=== PATIENT | male | born 1960 | race Asian ===

== ENCOUNTER 2017-08-19 08:41 | Inpatient (IN) | payer OTHER ==
[2017-08-19] MEDS ORDERED: CLINDAMYCIN 900 MG/D5W (PMX) 50 ML IVPB (09:34)
[2017-08-19] MEDS: SODIUM CHLORIDE 0.9% 1L BAG IV* (09:34)
[2017-08-19 10:42] LABS: ADD MAN DIFF? NO
[2017-08-19 10:45] LABS: BASOPHIL # 0.1 10^3/ul (0.0-0.1); BASOPHILS % 0.4 % (0.0-2.0); EOSINOPHILS # 0.1 10^3/ul (0.0-0.5); EOSINOPHILS % 0.9 % (0.0-7.0); HEMATOCRIT 35.6 % (42.0-52.0); HEMOGLOBIN 12.2 g/dl (14.0-18.0); LYMPHOCYTES # 0.7 10^3/ul (0.8-2.9); MEAN CORPUSCULAR HEMOGLOBIN 28.6 pg (29.0-33.0); MEAN CORPUSCULAR HGB CONC 34.3 g/dl (32.0-37.0); MEAN CORPUSCULAR VOLUME 83.4 fl (82.0-101.0); MONOCYTE # 0.9 10^3/ul (0.3-0.9); MONOCYTES % 6.2 % (0.0-11.0); NEUTROPHIL # 12.2 10^3/ul (1.6-7.5); NEUTROPHILS % 86.7 % (39.0-77.0); PLATELET COUNT 275 10^3/UL (140-415); RED BLOOD COUNT 4.27 10^6/ul (4.70-6.10); RED CELL DISTRIBUTION WIDTH 13.6 % (11.5-14.5)
[2017-08-19] MEDS: ACETAMINOPHEN 500 MG TAB PO (11:00)
[2017-08-19] MEDS: CEFEPIME 2GM/50 ML (PMX) 50 ML IVPB (11:02)
[2017-08-19] MEDS: VANCOMYCIN 1 GM (PMX) 250 ML IVPB (11:02)
[2017-08-19 11:04] LABS: INR 1.08; PROTIME 14.1 Sec (11.9-14.9); PT RATIO 1.1
[2017-08-19 11:05] LABS: PARTIAL THROMBOPLASTIN TIME 32.7 Sec (25.0-35.0)
[2017-08-19 11:06] LABS: LACTIC ACID 1.2 mmol/L (0.5-2.0)
[2017-08-19 11:12] LABS: ALANINE AMINOTRANSFERASE 26 IU/L (13-69); ALBUMIN 2.9 g/dl (3.3-4.9); ALBUMIN/GLOBULIN RATIO 0.65; ALKALINE PHOSPHATASE 108 IU/L (42-121); ANION GAP 14 (8-16); ASPARTATE AMINO TRANSFERASE 35 IU/L (15-46); BILIRUBIN,INDIRECT 0.7 mg/dl (0-1.1); BILIRUBIN,TOTAL 0.7 mg/dl (0.2-1.3); BLOOD UREA NITROGEN 37 mg/dl (7-20); CALCIUM 8.6 mg/dl (8.4-10.2); CARBON DIOXIDE 28 mmol/L (21-31); CHLORIDE 96 mmol/L (97-110); CREATININE 1.92 mg/dl (0.61-1.24); GLUCOSE 151 mg/dl (70-220); POTASSIUM 5.8 mmol/L (3.5-5.1); SODIUM 132 mmol/L (135-144); TOTAL PROTEIN 7.3 g/dl (6.1-8.1)
[2017-08-19 11:22] LABS: TROPONIN-I < 0.012 ng/ml (0.00-0.12)
[2017-08-19] MEDS ORDERED: ACETAMINOPHEN 325 MG TAB PO (12:00)
[2017-08-19] MEDS ORDERED: ONDANSETRON 4 MG INJ IV ×2 (12:00→12:30)
[2017-08-19 12:01] LABS: ERYTHROCYTE SEDIMENTATION RATE 93 mm/Hr (0-20)
[2017-08-19] MEDS ORDERED: NACL 0.9% 3 ML SYG IV (12:30)
[2017-08-19] MEDS ORDERED: VANCOMYCIN IV PER PHARMACY XX (12:30)
[2017-08-19] MEDS ORDERED: ACETAMINOPHEN 650 MG SUPP PR (12:30)
[2017-08-19 12:39] LABS: LACTIC ACID 0.8 mmol/L (0.5-2.0)
[2017-08-19 13:20] LABS: HEMOGLOBIN A1C 7.1 % (0-5.9)
[2017-08-19] MEDS ORDERED: GLUCOSE GEL 15 GRAM TUBE BUCCAL (13:30)
[2017-08-19] MEDS ORDERED: GLUCAGON 1 MG INJ IM (13:30)
[2017-08-19] MEDS ORDERED: GLUCOSE GEL 15 GRAM TUBE PO ×2 (13:30)
[2017-08-19] MEDS ORDERED: DEXTROSE 50% 50 ML SYRINGE IV ×2 (13:30)
[2017-08-19 13:32] LABS: CHOLESTEROL 81 mg/dl (100-200)
[2017-08-19 13:32] LABS: CHOL/HDL RATIO 4.7 RATIO; HDL CHOLESTEROL 17 mg/dl (30-78); LDL CHOLESTEROL,CALCULATED 40 mg/dl; TRIGLYCERIDES 121 mg/dl (0-149)
[2017-08-19 14:08] LABS: IRON 33 ug/dl (35-150)
[2017-08-19 14:17] LABS: % IRON SATURATION 16 % SAT (22-52); TOTAL IRON BINDING CAPACITY 211 ug/dl (241-421)
[2017-08-19] MEDS: PIPER-TAZO 3.375 GM IV (PMX) 50 ML IVPB ×2 (17:10→23:45)
[2017-08-19] MEDS: SOD CHLORIDE 0.9% 1,000 ML IV (17:11)
[2017-08-19] MEDS: VANCOMYCIN 1 GM in NS 250 ML IVPB (17:55)
[2017-08-19] MEDS: INSULIN ASPART [NOVOLOG] 3 ML PEN SC ×2 (17:58→21:00)
[2017-08-19] MEDS: ACETAMINOPHEN 325 MG TAB PO (19:36)
[2017-08-19] MEDS: FAMOTIDINE 20 MG TAB PO (21:20)
[2017-08-19] MEDS: HEPARIN 5,000 UNIT/0.5 ML VIAL SC (21:22)
[2017-08-19 23:00] LABS: ADD UMIC YES; UR ASCORBIC ACID NEGATIVE (NEGATIVE); UR BACTERIA FEW /HPF (NONE SEEN); UR BILIRUBIN (Dip) NEGATIVE (NEGATIVE); UR BLOOD (Dip) 3+ mg/dL (NEGATIVE); UR CLARITY CLOUDY (CLEAR); UR COLOR AMBER (YELLOW); UR GLUCOSE (Dip) NEGATIVE (NEGATIVE); UR KETONES (Dip) NEGATIVE (NEGATIVE); UR LEUKOCYTE ESTERASE (Dip) TRACE Leu/ul (NEGATIVE); UR NITRITE (Dip) NEGATIVE (NEGATIVE); UR RBC > 182 /HPF (0-5); UR SPECIFIC GRAVITY (Dip) 1.016 (1.003-1.030); UR TOTAL PROTEIN (Dip) 3+ mg/dl (NEGATIVE); UR UROBILINOGEN (Dip) NEGATIVE (NEGATIVE); UR WBC 56 /HPF (0-5)
[2017-08-19] MEDS: INSULIN GLARGINE [LANtus] 3 ML PEN SC (23:37)
[2017-08-20] MEDS: ACCU-CHEK XX (02:18)
[2017-08-20] MEDS: SOD CHLORIDE 0.9% 1,000 ML IV ×2 (03:20→17:17)
[2017-08-20] MEDS: PIPER-TAZO 3.375 GM IV (PMX) 50 ML IVPB ×3 (06:05→17:13)
[2017-08-20 06:20] LABS: ADD MAN DIFF? NO
[2017-08-20 06:29] LABS: WHITE BLOOD COUNT 12.4 10^3/ul (4.8-10.8)
[2017-08-20 06:29] LABS: BASOPHILS % 0.3 % (0.0-2.0); EOSINOPHILS # 0.3 10^3/ul (0.0-0.5); EOSINOPHILS % 2.5 % (0.0-7.0); HEMATOCRIT 28.6 % (42.0-52.0); HEMOGLOBIN 9.8 g/dl (14.0-18.0); LYMPHOCYTES # 0.7 10^3/ul (0.8-2.9); LYMPHOCYTES % 5.4 % (15.0-51.0); MEAN CORPUSCULAR HEMOGLOBIN 28.5 pg (29.0-33.0); MEAN CORPUSCULAR HGB CONC 34.3 g/dl (32.0-37.0); MEAN CORPUSCULAR VOLUME 83.1 fl (82.0-101.0); MONOCYTE # 0.7 10^3/ul (0.3-0.9); MONOCYTES % 5.5 % (0.0-11.0); NEUTROPHIL # 10.7 10^3/ul (1.6-7.5); NEUTROPHILS % 85.7 % (39.0-77.0); PLATELET COUNT 214 10^3/UL (140-415); RED BLOOD COUNT 3.44 10^6/ul (4.70-6.10); RED CELL DISTRIBUTION WIDTH 13.7 % (11.5-14.5)
[2017-08-20] MEDS: HYPOGLYCEMIA PROTOCOL when Glucose is <70 mg/dL or symptomatic <90 mg/dL. XX (07:00)
[2017-08-20] MEDS: Discontinue current oral sulfonylureas (glyburide, glipizide, and/or glimepiride) prior to XX (07:00)
[2017-08-20 07:01] LABS: ALANINE AMINOTRANSFERASE 27 IU/L (13-69); ALBUMIN/GLOBULIN RATIO 0.57; ALKALINE PHOSPHATASE 81 IU/L (42-121); ANION GAP 10 (8-16); ASPARTATE AMINO TRANSFERASE 29 IU/L (15-46); BILIRUBIN,INDIRECT 0.5 mg/dl (0-1.1); BILIRUBIN,TOTAL 0.5 mg/dl (0.2-1.3); BLOOD UREA NITROGEN 42 mg/dl (7-20); CALCIUM 7.4 mg/dl (8.4-10.2); CARBON DIOXIDE 25 mmol/L (21-31); CHLORIDE 102 mmol/L (97-110); CREATININE 2.16 mg/dl (0.61-1.24); GLUCOSE 85 mg/dl (70-220); MAGNESIUM 2.1 mg/dl (1.7-2.5); PHOSPHORUS 5.4 mg/dl (2.5-4.9); POTASSIUM 5.1 mmol/L (3.5-5.1); SODIUM 132 mmol/L (135-144); TOTAL PROTEIN 5.5 g/dl (6.1-8.1)
[2017-08-20] MEDS: INSULIN ASPART [NOVOLOG] 3 ML PEN SC ×4 (08:00→20:48)
[2017-08-20] MEDS: LINAGLIPTIN 5 MG TABLET PO (08:45)
[2017-08-20] MEDS: HEPARIN 5,000 UNIT/0.5 ML VIAL SC (09:00)
[2017-08-20] MEDS ORDERED: VANCOMYCIN 1.25 GM in SOD CHLORIDE 0.9% 250 ML IVPB (13:00)
[2017-08-20] MEDS: VANCOMYCIN 750 MG in DEXTROSE 5% 150 ML IVPB (14:47)
[2017-08-20] MEDS ORDERED: INSULIN GLARGINE [LANtus] 3 ML PEN SC (20:00)
[2017-08-20] MEDS: FAMOTIDINE 20 MG TAB PO (20:49)
[2017-08-21] MEDS: PIPER-TAZO 3.375 GM IV (PMX) 50 ML IVPB ×2 (00:07→05:54)
[2017-08-21] MEDS: ACCU-CHEK XX (00:10)
[2017-08-21 05:50] LABS: ADD MAN DIFF? NO
[2017-08-21 05:56] LABS: WHITE BLOOD COUNT 10.4 10^3/ul (4.8-10.8)
[2017-08-21 05:56] LABS: BASOPHIL # 0.1 10^3/ul (0.0-0.1); BASOPHILS % 0.6 % (0.0-2.0); EOSINOPHILS # 0.5 10^3/ul (0.0-0.5); EOSINOPHILS % 5.1 % (0.0-7.0); HEMATOCRIT 27.5 % (42.0-52.0); HEMOGLOBIN 9.2 g/dl (14.0-18.0); LYMPHOCYTES # 1.1 10^3/ul (0.8-2.9); LYMPHOCYTES % 10.2 % (15.0-51.0); MEAN CORPUSCULAR HEMOGLOBIN 28.1 pg (29.0-33.0); MEAN CORPUSCULAR HGB CONC 33.5 g/dl (32.0-37.0); MEAN CORPUSCULAR VOLUME 84.1 fl (82.0-101.0); MEAN PLATELET VOLUME 9.9 fl (7.4-10.4); MONOCYTE # 0.8 10^3/ul (0.3-0.9); MONOCYTES % 7.5 % (0.0-11.0); NEUTROPHIL # 7.9 10^3/ul (1.6-7.5); NEUTROPHILS % 75.9 % (39.0-77.0); PLATELET COUNT 221 10^3/UL (140-415); RED BLOOD COUNT 3.27 10^6/ul (4.70-6.10); RED CELL DISTRIBUTION WIDTH 13.7 % (11.5-14.5)
[2017-08-21] MEDS: SOD CHLORIDE 0.9% 1,000 ML IV ×2 (05:57→12:30)
[2017-08-21 06:29] LABS: ANION GAP 10 (8-16); BLOOD UREA NITROGEN 45 mg/dl (7-20); CALCIUM 7.2 mg/dl (8.4-10.2); CARBON DIOXIDE 25 mmol/L (21-31); CHLORIDE 102 mmol/L (97-110); CREATININE 2.72 mg/dl (0.61-1.24); GLUCOSE 99 mg/dl (70-220); POTASSIUM 5.2 mmol/L (3.5-5.1); SODIUM 132 mmol/L (135-144)
[2017-08-21] MEDS: INSULIN ASPART [NOVOLOG] 3 ML PEN SC ×4 (07:40→20:32)
[2017-08-21] MEDS ORDERED: INSULIN GLARGINE [LANtus] 3 ML PEN SC (09:00)
[2017-08-21] MEDS: LINAGLIPTIN 5 MG TABLET PO (09:59)
[2017-08-21] MEDS: PIPER-TAZO 2.25 GM (PMX) 50 ML IVPB ×3 (12:26→23:44)
[2017-08-21 13:58] LABS: VANCOMYCIN,TROUGH 9.4 ug/ml (10.0-20.0)
[2017-08-21] MEDS: VANCOMYCIN 750 MG in DEXTROSE 5% 150 ML IVPB (14:27)
[2017-08-21] MEDS: SOD FERRIC GLUC COMPLX 125 MG in SOD CHLORIDE 0.9% 100 ML IVPB (15:22)
[2017-08-21] MEDS: FAMOTIDINE 20 MG TAB PO (20:31)
[2017-08-22] MEDS: ACCU-CHEK XX (02:00)
[2017-08-22 05:09] LABS: ADD MAN DIFF? NO
[2017-08-22 05:20] LABS: BASOPHIL # 0.1 10^3/ul (0.0-0.1); BASOPHILS % 0.5 % (0.0-2.0); EOSINOPHILS # 0.5 10^3/ul (0.0-0.5); EOSINOPHILS % 5.5 % (0.0-7.0); HEMATOCRIT 27.8 % (42.0-52.0); HEMOGLOBIN 9.3 g/dl (14.0-18.0); LYMPHOCYTES # 0.9 10^3/ul (0.8-2.9); LYMPHOCYTES % 9.7 % (15.0-51.0); MEAN CORPUSCULAR HEMOGLOBIN 28.2 pg (29.0-33.0); MEAN CORPUSCULAR HGB CONC 33.5 g/dl (32.0-37.0); MEAN CORPUSCULAR VOLUME 84.2 fl (82.0-101.0); MEAN PLATELET VOLUME 9.7 fl (7.4-10.4); MONOCYTE # 0.7 10^3/ul (0.3-0.9); NEUTROPHIL # 7.2 10^3/ul (1.6-7.5); NEUTROPHILS % 76.7 % (39.0-77.0); PLATELET COUNT 223 10^3/UL (140-415); RED CELL DISTRIBUTION WIDTH 14.4 % (11.5-14.5)
[2017-08-22 05:20] LABS: WHITE BLOOD COUNT 9.4 10^3/ul (4.8-10.8)
[2017-08-22] MEDS: PIPER-TAZO 2.25 GM (PMX) 50 ML IVPB ×2 (05:33→11:47)
[2017-08-22 05:50] LABS: ANION GAP 9 (8-16); BLOOD UREA NITROGEN 45 mg/dl (7-20); CARBON DIOXIDE 23 mmol/L (21-31); CHLORIDE 106 mmol/L (97-110); CREATININE 2.95 mg/dl (0.61-1.24); GLUCOSE 120 mg/dl (70-220); POTASSIUM 5.4 mmol/L (3.5-5.1); SODIUM 133 mmol/L (135-144)
[2017-08-22] MEDS: SOD CHLORIDE 0.9% 1,000 ML IV (07:00)
[2017-08-22] MEDS: INSULIN ASPART [NOVOLOG] 3 ML PEN SC ×4 (08:00→21:00)
[2017-08-22] MEDS: LINAGLIPTIN 5 MG TABLET PO (09:17)
[2017-08-22] MEDS: SOD FERRIC GLUC COMPLX 125 MG in SOD CHLORIDE 0.9% 100 ML IVPB (10:23)
[2017-08-22] MEDS: NA POLYST SULFON 15 GM/60 ML BTL PO (14:14)
[2017-08-22] MEDS: VANCOMYCIN 750 MG in DEXTROSE 5% 150 ML IVPB (14:14)
[2017-08-22] MEDS: DAPTOMYCIN 350 MG in SOD CHLORIDE 0.9% 100 ML IVPB (15:00)
[2017-08-22] MEDS: LEVOFLOXACIN 500 MG TAB PO (16:54)
[2017-08-22] MEDS: LORATADINE 10 MG TAB NGT (16:55)
[2017-08-22] MEDS: ACETAMINOPHEN 325 MG TAB PO (16:58)
[2017-08-22] MEDS: FAMOTIDINE 20 MG TAB PO (21:32)
[2017-08-22] MEDS: DAPTOMYCIN 500 MG in SOD CHLORIDE 0.9% 100 ML IVPB (21:32)
[2017-08-23] MEDS: SOD CHLORIDE 0.9% 1,000 ML IV ×2 (00:30→12:47)
[2017-08-23] MEDS: ACCU-CHEK XX (01:30)
[2017-08-23 05:10] LABS: ADD MAN DIFF? NO
[2017-08-23 05:16] LABS: WHITE BLOOD COUNT 9.9 10^3/ul (4.8-10.8)
[2017-08-23 05:16] LABS: BASOPHILS % 0.4 % (0.0-2.0); EOSINOPHILS # 0.4 10^3/ul (0.0-0.5); EOSINOPHILS % 3.6 % (0.0-7.0); HEMATOCRIT 27.2 % (42.0-52.0); HEMOGLOBIN 9.2 g/dl (14.0-18.0); LYMPHOCYTES # 0.7 10^3/ul (0.8-2.9); LYMPHOCYTES % 7.2 % (15.0-51.0); MEAN CORPUSCULAR HEMOGLOBIN 28.3 pg (29.0-33.0); MEAN CORPUSCULAR HGB CONC 33.8 g/dl (32.0-37.0); MEAN CORPUSCULAR VOLUME 83.7 fl (82.0-101.0); MEAN PLATELET VOLUME 9.7 fl (7.4-10.4); MONOCYTE # 0.7 10^3/ul (0.3-0.9); MONOCYTES % 7.5 % (0.0-11.0); NEUTROPHILS % 80.4 % (39.0-77.0); PLATELET COUNT 200 10^3/UL (140-415); RED BLOOD COUNT 3.25 10^6/ul (4.70-6.10); RED CELL DISTRIBUTION WIDTH 14.2 % (11.5-14.5)
[2017-08-23 06:24] LABS: ANION GAP 9 (8-16); BLOOD UREA NITROGEN 46 mg/dl (7-20); CALCIUM 6.9 mg/dl (8.4-10.2); CARBON DIOXIDE 21 mmol/L (21-31); CHLORIDE 108 mmol/L (97-110); CREATININE 2.96 mg/dl (0.61-1.24); GLUCOSE 162 mg/dl (70-220); POTASSIUM 5.2 mmol/L (3.5-5.1); SODIUM 133 mmol/L (135-144)
[2017-08-23 06:54] LABS: VANCOMYCIN,TROUGH 15.1 ug/ml (10.0-20.0)
[2017-08-23 07:27] LABS: ADD UMIC YES; UR AMORPHOUS CRYSTAL FEW /HPF (NONE SEEN); UR ASCORBIC ACID NEGATIVE (NEGATIVE); UR BACTERIA FEW /HPF (NONE SEEN); UR BILIRUBIN (Dip) NEGATIVE (NEGATIVE); UR BLOOD (Dip) 3+ mg/dL (NEGATIVE); UR CLARITY CLOUDY (CLEAR); UR COLOR AMBER (YELLOW); UR GLUCOSE (Dip) 1+ mg/dL (NEGATIVE); UR KETONES (Dip) NEGATIVE (NEGATIVE); UR LEUKOCYTE ESTERASE (Dip) NEGATIVE Leu/ul (NEGATIVE); UR NITRITE (Dip) NEGATIVE (NEGATIVE); UR RBC > 182 /HPF (0-5); UR SPECIFIC GRAVITY (Dip) 1.014 (1.003-1.030); UR TOTAL PROTEIN (Dip) 2+ mg/dl (NEGATIVE); UR UROBILINOGEN (Dip) NEGATIVE (NEGATIVE); UR WBC 36 /HPF (0-5)
[2017-08-23 07:39] LABS: SODIUM,URINE RANDOM 42 mmol/L (30-90)
[2017-08-23 07:39] LABS: CREATININE,URINE RANDOM 95.82 mg/dl (20-370)
[2017-08-23] MEDS: INSULIN ASPART [NOVOLOG] 3 ML PEN SC ×4 (08:00→21:00)
[2017-08-23 08:27] LABS: URINE EOSINOPHILS 0.4 % (0-1.9)
[2017-08-23] MEDS: LORATADINE 10 MG TAB NGT (08:28)
[2017-08-23] MEDS: LINAGLIPTIN 5 MG TABLET PO (08:28)
[2017-08-23] MEDS: FAMOTIDINE 20 MG TAB PO (21:44)
[2017-08-24] MEDS: ACCU-CHEK XX (02:00)
[2017-08-24] MEDS: SOD CHLORIDE 0.9% 1,000 ML IV (02:37)
[2017-08-24 05:48] LABS: ADD MAN DIFF? NO
[2017-08-24 05:57] LABS: WHITE BLOOD COUNT 10.3 10^3/ul (4.8-10.8)
[2017-08-24 05:57] LABS: BASOPHILS % 0.4 % (0.0-2.0); EOSINOPHILS # 0.4 10^3/ul (0.0-0.5); EOSINOPHILS % 4.3 % (0.0-7.0); HEMATOCRIT 27.7 % (42.0-52.0); HEMOGLOBIN 9.3 g/dl (14.0-18.0); LYMPHOCYTES # 0.7 10^3/ul (0.8-2.9); LYMPHOCYTES % 7.2 % (15.0-51.0); MEAN CORPUSCULAR HEMOGLOBIN 28.4 pg (29.0-33.0); MEAN CORPUSCULAR HGB CONC 33.6 g/dl (32.0-37.0); MEAN CORPUSCULAR VOLUME 84.7 fl (82.0-101.0); MEAN PLATELET VOLUME 10.1 fl (7.4-10.4); MONOCYTE # 0.7 10^3/ul (0.3-0.9); MONOCYTES % 7.1 % (0.0-11.0); NEUTROPHIL # 8.2 10^3/ul (1.6-7.5); NEUTROPHILS % 80.2 % (39.0-77.0); NUCLEATED RED BLOOD CELLS% 0.2 /100WBC (0.0-0.0); PLATELET COUNT 181 10^3/UL (140-415); RED BLOOD COUNT 3.27 10^6/ul (4.70-6.10); RED CELL DISTRIBUTION WIDTH 14.3 % (11.5-14.5)
[2017-08-24 06:34] LABS: ANION GAP 11 (8-16); BLOOD UREA NITROGEN 49 mg/dl (7-20); CALCIUM 6.7 mg/dl (8.4-10.2); CARBON DIOXIDE 19 mmol/L (21-31); CHLORIDE 109 mmol/L (97-110); CREATININE 3.42 mg/dl (0.61-1.24); GLUCOSE 127 mg/dl (70-220); POTASSIUM 5.1 mmol/L (3.5-5.1); SODIUM 134 mmol/L (135-144)
[2017-08-24 06:56] LABS: CREATINE KINASE < 20 IU/L (23-200)
[2017-08-24 06:57] LABS: COMPLEMENT C3 85 mg/dl (88-165); COMPLEMENT C4 20 mg/dl (14-44)
[2017-08-24] MEDS: INSULIN ASPART [NOVOLOG] 3 ML PEN SC ×4 (07:58→21:04)
[2017-08-24] MEDS: LORATADINE 10 MG TAB NGT ×2 (08:13→09:38)
[2017-08-24] MEDS: LINAGLIPTIN 5 MG TABLET PO ×2 (08:14→09:38)
[2017-08-24] MEDS: GUAIFENESIN/DM 5ML CUP PO ×2 (11:57→21:04)
[2017-08-24] MEDS: LEVOFLOXACIN 500 MG TAB PO (14:43)
[2017-08-24] MEDS ORDERED: DIPHENHYDRAMINE 50 MG INJ IV (17:00)
[2017-08-24] MEDS: FUROSEMIDE 20 MG INJ IV (17:41)
[2017-08-24] MEDS: DAPTOMYCIN 500 MG in SOD CHLORIDE 0.9% 100 ML IVPB (17:41)
[2017-08-24] MEDS: FAMOTIDINE 20 MG TAB PO (21:04)
[2017-08-25] MEDS: ACCU-CHEK XX (02:00)
[2017-08-25 05:16] LABS: ADD MAN DIFF? NO
[2017-08-25 05:18] LABS: BASOPHILS % 0.6 % (0.0-2.0); EOSINOPHILS # 0.3 10^3/ul (0.0-0.5); EOSINOPHILS % 3.9 % (0.0-7.0); HEMOGLOBIN 8.3 g/dl (14.0-18.0); LYMPHOCYTES # 0.6 10^3/ul (0.8-2.9); LYMPHOCYTES % 9.1 % (15.0-51.0); MEAN CORPUSCULAR HEMOGLOBIN 28.7 pg (29.0-33.0); MEAN CORPUSCULAR HGB CONC 34.6 g/dl (32.0-37.0); MEAN PLATELET VOLUME 10.4 fl (7.4-10.4); MONOCYTE # 0.6 10^3/ul (0.3-0.9); MONOCYTES % 8.8 % (0.0-11.0); NEUTROPHIL # 5.1 10^3/ul (1.6-7.5); NEUTROPHILS % 76.8 % (39.0-77.0); PLATELET COUNT 160 10^3/UL (140-415); RED BLOOD COUNT 2.89 10^6/ul (4.70-6.10)
[2017-08-25 05:18] LABS: WHITE BLOOD COUNT 6.6 10^3/ul (4.8-10.8)
[2017-08-25 05:47] LABS: ANION GAP 13 (8-16); BLOOD UREA NITROGEN 51 mg/dl (7-20); CALCIUM 6.9 mg/dl (8.4-10.2); CARBON DIOXIDE 19 mmol/L (21-31); CHLORIDE 109 mmol/L (97-110); CREATININE 3.98 mg/dl (0.61-1.24); GLUCOSE 131 mg/dl (70-220); POTASSIUM 5.3 mmol/L (3.5-5.1); SODIUM 136 mmol/L (135-144)
[2017-08-25] MEDS: INSULIN ASPART [NOVOLOG] 3 ML PEN SC ×4 (08:00→20:17)
[2017-08-25] MEDS: GUAIFENESIN/DM 5ML CUP PO ×2 (08:31→22:53)
[2017-08-25] MEDS: LORATADINE 10 MG TAB NGT (08:31)
[2017-08-25] MEDS: LINAGLIPTIN 5 MG TABLET PO (08:31)
[2017-08-25] MEDS: FUROSEMIDE 20 MG INJ IV (11:48)
[2017-08-25 13:11] LABS: MYELOPEROXIDASE ANTIBODY <1.0 AI; PROTEINASE-3 ANTIBODY <1.0 AI
[2017-08-25 13:58] LABS: ANA SCREEN NEGATIVE (NEGATIVE)
[2017-08-25 14:42] LABS: ANCA SCREEN NEGATIVE (NEGATIVE)
[2017-08-25] MEDS: FAMOTIDINE 20 MG TAB PO (20:18)
[2017-08-26] MEDS: ACCU-CHEK XX (01:20)
[2017-08-26 05:15] LABS: ADD MAN DIFF? NO
[2017-08-26 05:23] LABS: WHITE BLOOD COUNT 6.8 10^3/ul (4.8-10.8)
[2017-08-26 05:23] LABS: BASOPHILS % 0.3 % (0.0-2.0); EOSINOPHILS # 0.2 10^3/ul (0.0-0.5); EOSINOPHILS % 2.5 % (0.0-7.0); HEMATOCRIT 25.9 % (42.0-52.0); HEMOGLOBIN 8.9 g/dl (14.0-18.0); LYMPHOCYTES # 0.7 10^3/ul (0.8-2.9); LYMPHOCYTES % 10.3 % (15.0-51.0); MEAN CORPUSCULAR HEMOGLOBIN 28.3 pg (29.0-33.0); MEAN CORPUSCULAR HGB CONC 34.4 g/dl (32.0-37.0); MEAN CORPUSCULAR VOLUME 82.5 fl (82.0-101.0); MEAN PLATELET VOLUME 10.4 fl (7.4-10.4); MONOCYTE # 0.6 10^3/ul (0.3-0.9); MONOCYTES % 8.9 % (0.0-11.0); NEUTROPHIL # 5.2 10^3/ul (1.6-7.5); NEUTROPHILS % 77.1 % (39.0-77.0); PLATELET COUNT 187 10^3/UL (140-415); RED BLOOD COUNT 3.14 10^6/ul (4.70-6.10); RED CELL DISTRIBUTION WIDTH 14.4 % (11.5-14.5)
[2017-08-26 05:59] LABS: ANION GAP 14 (8-16); BLOOD UREA NITROGEN 58 mg/dl (7-20); CALCIUM 6.9 mg/dl (8.4-10.2); CARBON DIOXIDE 18 mmol/L (21-31); CHLORIDE 108 mmol/L (97-110); CREATININE 4.32 mg/dl (0.61-1.24); GLUCOSE 121 mg/dl (70-220); POTASSIUM 5.7 mmol/L (3.5-5.1); SODIUM 134 mmol/L (135-144)
[2017-08-26 06:14] LABS: MAGNESIUM 2.1 mg/dl (1.7-2.5)
[2017-08-26] MEDS: ACETAMINOPHEN 325 MG TAB PO (06:54)
[2017-08-26] MEDS: GUAIFENESIN/DM 5ML CUP PO ×2 (06:56→20:21)
[2017-08-26] MEDS: INSULIN ASPART [NOVOLOG] 3 ML PEN SC ×4 (08:00→21:00)
[2017-08-26] MEDS: LORATADINE 10 MG TAB NGT (09:25)
[2017-08-26] MEDS: LINAGLIPTIN 5 MG TABLET PO (09:25)
[2017-08-26] MEDS: NA POLYST SULFON 15 GM/60 ML BTL PO ×2 (10:20→20:21)
[2017-08-26] MEDS: LEVOFLOXACIN 500 MG TAB PO (14:52)
[2017-08-26] MEDS: DAPTOMYCIN 500 MG in SOD CHLORIDE 0.9% 100 ML IVPB (17:47)
[2017-08-26] MEDS: FAMOTIDINE 20 MG TAB PO (20:21)
[2017-08-26] MEDS: METOPROLOL 25 MG TAB PO (20:22)
[2017-08-26] MEDS: NA BICARBONATE 650 MG TAB PO (20:55)
[2017-08-27] MEDS: ACETAMINOPHEN 325 MG TAB PO ×3 (01:53→20:28)
[2017-08-27] MEDS: ACCU-CHEK XX (02:00)
[2017-08-27 02:27] LABS: CREATINE KINASE 69 IU/L (23-200)
[2017-08-27 02:41] LABS: CK INDEX 0.8; TROPONIN-I 0.019 ng/ml (0.00-0.12)
[2017-08-27 02:45] LABS: CK-MB 0.55 ng/ml (0.0-2.4)
[2017-08-27 05:18] LABS: ADD MAN DIFF? NO
[2017-08-27 05:28] LABS: BASOPHILS % 0.3 % (0.0-2.0); EOSINOPHILS # 0.2 10^3/ul (0.0-0.5); EOSINOPHILS % 4.1 % (0.0-7.0); HEMATOCRIT 25.3 % (42.0-52.0); HEMOGLOBIN 8.6 g/dl (14.0-18.0); LYMPHOCYTES # 0.8 10^3/ul (0.8-2.9); LYMPHOCYTES % 12.9 % (15.0-51.0); MEAN CORPUSCULAR HEMOGLOBIN 28.3 pg (29.0-33.0); MEAN CORPUSCULAR VOLUME 83.2 fl (82.0-101.0); MEAN PLATELET VOLUME 10.1 fl (7.4-10.4); MONOCYTE # 0.4 10^3/ul (0.3-0.9); MONOCYTES % 6.3 % (0.0-11.0); NEUTROPHIL # 4.5 10^3/ul (1.6-7.5); NEUTROPHILS % 75.6 % (39.0-77.0); PLATELET COUNT 183 10^3/UL (140-415); RED BLOOD COUNT 3.04 10^6/ul (4.70-6.10); RED CELL DISTRIBUTION WIDTH 14.5 % (11.5-14.5)
[2017-08-27 05:28] LABS: WHITE BLOOD COUNT 5.9 10^3/ul (4.8-10.8)
[2017-08-27 06:11] LABS: MAGNESIUM 2.2 mg/dl (1.7-2.5)
[2017-08-27 06:13] LABS: ANION GAP 12 (8-16); BLOOD UREA NITROGEN 56 mg/dl (7-20); CALCIUM 6.7 mg/dl (8.4-10.2); CARBON DIOXIDE 20 mmol/L (21-31); CHLORIDE 109 mmol/L (97-110); CREATININE 4.57 mg/dl (0.61-1.24); GLUCOSE 131 mg/dl (70-220); POTASSIUM 4.9 mmol/L (3.5-5.1); SODIUM 136 mmol/L (135-144)
[2017-08-27 07:43] LABS: CREATINE KINASE 47 IU/L (23-200)
[2017-08-27 07:57] LABS: CK INDEX 0.9
[2017-08-27] MEDS: INSULIN ASPART [NOVOLOG] 3 ML PEN SC ×4 (08:00→20:39)
[2017-08-27 08:10] LABS: CK-MB 0.43 ng/ml (0.0-2.4)
[2017-08-27] MEDS: LINAGLIPTIN 5 MG TABLET PO (08:51)
[2017-08-27] MEDS: LORATADINE 10 MG TAB NGT ×2 (08:51→08:59)
[2017-08-27] MEDS: NA BICARBONATE 650 MG TAB PO ×2 (08:51→20:28)
[2017-08-27] MEDS: METOPROLOL 25 MG TAB PO ×2 (08:51→20:28)
[2017-08-27] MEDS: GUAIFENESIN/DM 5ML CUP PO ×2 (08:56→20:27)
[2017-08-27 12:37] LABS: CREATINE KINASE 54 IU/L (23-200)
[2017-08-27 12:49] LABS: CK INDEX 1.1
[2017-08-27 12:50] LABS: CK-MB 0.62 ng/ml (0.0-2.4); TROPONIN-I < 0.012 ng/ml (0.00-0.12)
[2017-08-27] MEDS: FAMOTIDINE 20 MG TAB PO (20:31)
[2017-08-28] MEDS: GUAIFENESIN/DM (SR) TAB PO ×3 (00:45→22:05)
[2017-08-28] MEDS: ACCU-CHEK XX (02:00)
[2017-08-28 05:43] LABS: ADD MAN DIFF? NO; BASOPHILS % 0.3 % (0.0-2.0); EOSINOPHILS # 0.6 10^3/ul (0.0-0.5); EOSINOPHILS % 8.6 % (0.0-7.0); HEMATOCRIT 25.4 % (42.0-52.0); HEMOGLOBIN 8.8 g/dl (14.0-18.0); LYMPHOCYTES % 13.3 % (15.0-51.0); MEAN CORPUSCULAR HEMOGLOBIN 28.7 pg (29.0-33.0); MEAN CORPUSCULAR HGB CONC 34.6 g/dl (32.0-37.0); MEAN CORPUSCULAR VOLUME 82.7 fl (82.0-101.0); MEAN PLATELET VOLUME 10.4 fl (7.4-10.4); MONOCYTE # 0.5 10^3/ul (0.3-0.9); MONOCYTES % 7.2 % (0.0-11.0); NEUTROPHIL # 5.2 10^3/ul (1.6-7.5); NEUTROPHILS % 69.9 % (39.0-77.0); PLATELET COUNT 193 10^3/UL (140-415); RED BLOOD COUNT 3.07 10^6/ul (4.70-6.10); RED CELL DISTRIBUTION WIDTH 14.7 % (11.5-14.5)
[2017-08-28 05:43] LABS: WHITE BLOOD COUNT 7.5 10^3/ul (4.8-10.8)
[2017-08-28 06:43] LABS: SODIUM 135 mmol/L (135-144)
[2017-08-28 07:18] LABS: ANION GAP 12 (8-16); BLOOD UREA NITROGEN 57 mg/dl (7-20); CALCIUM 6.7 mg/dl (8.4-10.2); CARBON DIOXIDE 19 mmol/L (21-31); CHLORIDE 109 mmol/L (97-110); CREATININE 4.56 mg/dl (0.61-1.24); GLUCOSE 105 mg/dl (70-220); POTASSIUM 4.8 mmol/L (3.5-5.1)
[2017-08-28] MEDS: INSULIN ASPART [NOVOLOG] 3 ML PEN SC ×4 (07:56→20:24)
[2017-08-28] MEDS: NA BICARBONATE 650 MG TAB PO ×2 (08:58→20:16)
[2017-08-28] MEDS: ACETAMINOPHEN 325 MG TAB PO ×2 (08:58→19:09)
[2017-08-28] MEDS: LINAGLIPTIN 5 MG TABLET PO (08:58)
[2017-08-28] MEDS: METOPROLOL 25 MG TAB PO ×2 (09:00→22:03)
[2017-08-28] MEDS: LORATADINE 10 MG TAB NGT (09:00)
[2017-08-28] MEDS: LEVOFLOXACIN 500 MG TAB PO (15:03)
[2017-08-28] MEDS: DAPTOMYCIN 500 MG in SOD CHLORIDE 0.9% 100 ML IVPB (17:14)
[2017-08-28] MEDS: FAMOTIDINE 20 MG TAB PO (20:16)
[2017-08-29] MEDS: DEXTROSE 5%-0.45% NACL 1,000 ML IV ×2 (00:36→13:20)
[2017-08-29] MEDS: ACCU-CHEK XX (02:00)
[2017-08-29] MEDS ORDERED: CEFAZOLIN 1 GM INJ (07:00)
[2017-08-29] MEDS: INSULIN ASPART [NOVOLOG] 3 ML PEN SC ×5 (07:51→20:47)
[2017-08-29] MEDS: NA BICARBONATE 650 MG TAB PO ×2 (08:50→20:46)
[2017-08-29] MEDS: METOPROLOL 25 MG TAB PO ×2 (08:50→20:48)
[2017-08-29] MEDS: LINAGLIPTIN 5 MG TABLET PO (08:50)
[2017-08-29] MEDS: LORATADINE 10 MG TAB NGT (08:50)
[2017-08-29] MEDS: GUAIFENESIN/DM (SR) TAB PO ×2 (08:50→20:45)
[2017-08-29] MEDS ORDERED: MIDAZOLAM 1 MG/ML 2 ML INJ ×3 (13:44→16:00)
[2017-08-29] MEDS ORDERED: FENTAnyl 50 MCG/ML VIAL (13:44)
[2017-08-29] MEDS ORDERED: hydrALAzine 20 MG INJ IV (14:30)
[2017-08-29] MEDS ORDERED: MIDAZOLAM 1 MG/ML 2 ML INJ IV (14:30)
[2017-08-29] MEDS ORDERED: EPHEDrine SULFATE 50 MG/5 ML SYG IV (14:30)
[2017-08-29] MEDS ORDERED: LABETALOL HCL 20MG INJ IV (14:30)
[2017-08-29] MEDS ORDERED: METOCLOPRAMIDE 10 MG INJ IV (14:30)
[2017-08-29] MEDS ORDERED: DIPHENHYDRAMINE 50 MG INJ IV (14:30)
[2017-08-29] MEDS ORDERED: ALBUTEROL 0.083% (NEB) 2.5 MG/3 ML AMP HHN (14:30)
[2017-08-29] MEDS ORDERED: MEPERIDINE 25 MG INJ IV (14:30)
[2017-08-29] MEDS ORDERED: ONDANSETRON 4 MG INJ IV (14:30)
[2017-08-29] MEDS ORDERED: HYDROmorphONE (0.2 MG/ML) 10ML SYG IV ×3 (14:30)
[2017-08-29] MEDS: THROMBIN 5000 UNIT VIAL (16:05)
[2017-08-29] MEDS ORDERED: NEOMYC/POLYMYX/BACIT 30 GM OINT (16:07)
[2017-08-29] MEDS: hydrALAzine 20 MG INJ IV (17:52)
[2017-08-29 18:19] LABS: ANION GAP 11 (8-16); BLOOD UREA NITROGEN 59 mg/dl (7-20); CALCIUM 6.6 mg/dl (8.4-10.2); CARBON DIOXIDE 21 mmol/L (21-31); CHLORIDE 108 mmol/L (97-110); CREATININE 4.36 mg/dl (0.61-1.24); GLUCOSE 117 mg/dl (70-220); POTASSIUM 5.3 mmol/L (3.5-5.1); SODIUM 135 mmol/L (135-144)
[2017-08-29] MEDS: FUROSEMIDE 20 MG INJ IV (18:37)
[2017-08-29] MEDS: FAMOTIDINE 20 MG TAB PO (20:45)
[2017-08-29] MEDS: ACETAMINOPHEN 325 MG TAB PO (20:46)
[2017-08-29] MEDS: NA POLYST SULFON 15 GM/60 ML BTL PO (22:23)
[2017-08-30] MEDS: ZOLPIDEM 5 MG TAB PO (00:56)
[2017-08-30] MEDS: ACCU-CHEK XX (02:00)
[2017-08-30] MEDS: morphine 2 MG INJ IV ×4 (03:30→19:53)
[2017-08-30 06:48] LABS: ADD MAN DIFF? NO
[2017-08-30 06:50] LABS: WHITE BLOOD COUNT 8.9 10^3/ul (4.8-10.8)
[2017-08-30 06:50] LABS: BASOPHILS % 0.2 % (0.0-2.0); EOSINOPHILS # 0.6 10^3/ul (0.0-0.5); EOSINOPHILS % 6.4 % (0.0-7.0); HEMATOCRIT 24.4 % (42.0-52.0); HEMOGLOBIN 8.4 g/dl (14.0-18.0); LYMPHOCYTES # 1.1 10^3/ul (0.8-2.9); LYMPHOCYTES % 11.9 % (15.0-51.0); MEAN CORPUSCULAR HEMOGLOBIN 28.2 pg (29.0-33.0); MEAN CORPUSCULAR HGB CONC 34.4 g/dl (32.0-37.0); MEAN CORPUSCULAR VOLUME 81.9 fl (82.0-101.0); MEAN PLATELET VOLUME 10.8 fl (7.4-10.4); MONOCYTE # 0.5 10^3/ul (0.3-0.9); MONOCYTES % 5.3 % (0.0-11.0); NEUTROPHIL # 6.8 10^3/ul (1.6-7.5); NEUTROPHILS % 75.6 % (39.0-77.0); PLATELET COUNT 189 10^3/UL (140-415); RED BLOOD COUNT 2.98 10^6/ul (4.70-6.10); RED CELL DISTRIBUTION WIDTH 14.6 % (11.5-14.5)
[2017-08-30 07:37] LABS: MAGNESIUM 1.8 mg/dl (1.7-2.5)
[2017-08-30] MEDS: INSULIN ASPART [NOVOLOG] 3 ML PEN SC ×4 (08:04→21:00)
[2017-08-30] MEDS: NA BICARBONATE 650 MG TAB PO ×2 (08:55→21:23)
[2017-08-30] MEDS: LORATADINE 10 MG TAB NGT (08:55)
[2017-08-30] MEDS: GUAIFENESIN/DM (SR) TAB PO ×2 (08:55→21:23)
[2017-08-30] MEDS: METOPROLOL 25 MG TAB PO ×2 (08:55→21:24)
[2017-08-30] MEDS: LINAGLIPTIN 5 MG TABLET PO (08:56)
[2017-08-30 12:34] LABS: ALBUMIN 1.9 g/dl (3.3-4.9); ANION GAP 14 (8-16); BLOOD UREA NITROGEN 58 mg/dl (7-20); CALCIUM 6.5 mg/dl (8.4-10.2); CARBON DIOXIDE 18 mmol/L (21-31); CHLORIDE 106 mmol/L (97-110); CREATININE 4.32 mg/dl (0.61-1.24); GLUCOSE 184 mg/dl (70-220); PHOSPHORUS 6.1 mg/dl (2.5-4.9); POTASSIUM 4.8 mmol/L (3.5-5.1); SODIUM 133 mmol/L (135-144)
[2017-08-30] MEDS: LEVOFLOXACIN 500 MG TAB PO (15:09)
[2017-08-30 17:05] LABS: ADD UMIC YES; UR ASCORBIC ACID NEGATIVE (NEGATIVE); UR BILIRUBIN (Dip) NEGATIVE (NEGATIVE); UR BLOOD (Dip) 3+ mg/dL (NEGATIVE); UR BUDDING YEAST MODERATE /HPF (NONE SEEN); UR CLARITY SLIGHTLY CLOUDY (CLEAR); UR COLOR RED (YELLOW); UR GLUCOSE (Dip) 1+ mg/dL (NEGATIVE); UR KETONES (Dip) NEGATIVE (NEGATIVE); UR LEUKOCYTE ESTERASE (Dip) NEGATIVE Leu/ul (NEGATIVE); UR NITRITE (Dip) NEGATIVE (NEGATIVE); UR RBC > 182 /HPF (0-5); UR SPECIFIC GRAVITY (Dip) 1.012 (1.003-1.030); UR TOTAL PROTEIN (Dip) 3+ mg/dl (NEGATIVE); UR UROBILINOGEN (Dip) NEGATIVE (NEGATIVE); UR WBC 23 /HPF (0-5)
[2017-08-30 18:09] LABS: CREATININE,URINE RANDOM 60.42 mg/dl (20-370)
[2017-08-30] MEDS: CALCIUM CARBONATE 500 MG CHEW TAB PO (18:20)
[2017-08-30] MEDS: DAPTOMYCIN 500 MG in SOD CHLORIDE 0.9% 100 ML IVPB (18:20)
[2017-08-30 18:26] LABS: CREATININE,URINE RANDOM 60.93 mg/dl (20-370)
[2017-08-30 18:26] LABS: SODIUM,URINE RANDOM 63 mmol/L (30-90)
[2017-08-30 18:33] LABS: PROTEIN/CREAT RATIO 8.25 RATIO
[2017-08-30] MEDS: FLUCONAZOLE 100 MG TAB PO (21:23)
[2017-08-30] MEDS: FAMOTIDINE 20 MG TAB PO (21:23)
[2017-08-30] MEDS: HEPARIN 5,000 UNIT/0.5 ML VIAL SC (21:25)
[2017-08-31] MEDS: ACCU-CHEK XX (02:00)
[2017-08-31 05:28] LABS: ANION GAP 13 (8-16); BLOOD UREA NITROGEN 59 mg/dl (7-20); CALCIUM 6.3 mg/dl (8.4-10.2); CARBON DIOXIDE 20 mmol/L (21-31); CHLORIDE 105 mmol/L (97-110); CREATININE 4.57 mg/dl (0.61-1.24); GLUCOSE 132 mg/dl (70-220); SODIUM 133 mmol/L (135-144)
[2017-08-31] MEDS: INSULIN ASPART [NOVOLOG] 3 ML PEN SC ×4 (08:00→21:00)
[2017-08-31] MEDS: GUAIFENESIN/DM (SR) TAB PO ×2 (09:14→21:01)
[2017-08-31] MEDS: METOPROLOL 25 MG TAB PO ×2 (09:14→21:02)
[2017-08-31] MEDS: FLUCONAZOLE 100 MG TAB PO (09:14)
[2017-08-31] MEDS: LORATADINE 10 MG TAB NGT (09:14)
[2017-08-31] MEDS: CALCIUM CARBONATE 500 MG CHEW TAB PO ×3 (09:14→17:27)
[2017-08-31] MEDS: NA BICARBONATE 650 MG TAB PO ×2 (09:14→21:01)
[2017-08-31] MEDS: LINAGLIPTIN 5 MG TABLET PO (09:14)
[2017-08-31] MEDS: HEPARIN 5,000 UNIT/0.5 ML VIAL SC ×2 (09:15→21:10)
[2017-08-31] MEDS: AMLODIPINE 5 MG TAB PO ×2 (12:08→21:01)
[2017-08-31] MEDS: FAMOTIDINE 20 MG TAB PO (21:01)
[2017-09-01] MEDS: ACCU-CHEK XX (02:00)
[2017-09-01] MEDS: INSULIN ASPART [NOVOLOG] 3 ML PEN SC ×4 (08:10→21:18)
[2017-09-01] MEDS: HEPARIN 5,000 UNIT/0.5 ML VIAL SC ×2 (08:11→21:18)
[2017-09-01] MEDS: NA BICARBONATE 650 MG TAB PO ×2 (08:12→21:16)
[2017-09-01] MEDS: FLUCONAZOLE 100 MG TAB PO (08:12)
[2017-09-01] MEDS: LINAGLIPTIN 5 MG TABLET PO (08:12)
[2017-09-01] MEDS: GUAIFENESIN/DM (SR) TAB PO ×2 (08:12→21:16)
[2017-09-01] MEDS: LORATADINE 10 MG TAB NGT (08:12)
[2017-09-01] MEDS: CALCIUM CARBONATE 500 MG CHEW TAB PO ×3 (08:12→21:16)
[2017-09-01] MEDS: METOPROLOL 25 MG TAB PO ×2 (08:13→21:17)
[2017-09-01] MEDS: AMLODIPINE 5 MG TAB PO ×2 (08:13→21:16)
[2017-09-01] MEDS: LEVOFLOXACIN 500 MG TAB PO (14:13)
[2017-09-01 15:53] LABS: ADD MAN DIFF? NO
[2017-09-01 15:56] LABS: BASOPHILS % 0.1 % (0.0-2.0); EOSINOPHILS # 0.6 10^3/ul (0.0-0.5); EOSINOPHILS % 4.5 % (0.0-7.0); HEMATOCRIT 22.8 % (42.0-52.0); HEMOGLOBIN 7.9 g/dl (14.0-18.0); LYMPHOCYTES # 0.9 10^3/ul (0.8-2.9); LYMPHOCYTES % 7.5 % (15.0-51.0); MEAN CORPUSCULAR HGB CONC 34.6 g/dl (32.0-37.0); MEAN CORPUSCULAR VOLUME 80.9 fl (82.0-101.0); MONOCYTE # 0.9 10^3/ul (0.3-0.9); NEUTROPHIL # 9.8 10^3/ul (1.6-7.5); NEUTROPHILS % 79.8 % (39.0-77.0); PLATELET COUNT 219 10^3/UL (140-415); RED BLOOD COUNT 2.82 10^6/ul (4.70-6.10); RED CELL DISTRIBUTION WIDTH 14.3 % (11.5-14.5)
[2017-09-01 15:56] LABS: WHITE BLOOD COUNT 12.2 10^3/ul (4.8-10.8)
[2017-09-01 16:17] LABS: ANION GAP 11 (8-16); BLOOD UREA NITROGEN 63 mg/dl (7-20); CALCIUM 6.4 mg/dl (8.4-10.2); CARBON DIOXIDE 20 mmol/L (21-31); CHLORIDE 103 mmol/L (97-110); CREATININE 4.55 mg/dl (0.61-1.24); GLUCOSE 183 mg/dl (70-220); MAGNESIUM 1.8 mg/dl (1.7-2.5); PHOSPHORUS 7.3 mg/dl (2.5-4.9); POTASSIUM 4.3 mmol/L (3.5-5.1); SODIUM 130 mmol/L (135-144)
[2017-09-01] MEDS: DAPTOMYCIN 500 MG in SOD CHLORIDE 0.9% 100 ML IVPB (17:17)
[2017-09-01] MEDS: NYSTATIN 30 GM POWDER BTL TOP (21:15)
[2017-09-01] MEDS: FAMOTIDINE 20 MG TAB PO (21:16)
[2017-09-02] MEDS: ACCU-CHEK XX (02:29)
[2017-09-02] MEDS: morphine 2 MG INJ IV (03:41)
[2017-09-02 05:47] LABS: WHITE BLOOD COUNT 9.6 10^3/ul (4.8-10.8)
[2017-09-02 05:47] LABS: ADD MAN DIFF? NO; BASOPHILS % 0.1 % (0.0-2.0); EOSINOPHILS # 0.6 10^3/ul (0.0-0.5); EOSINOPHILS % 6.4 % (0.0-7.0); HEMATOCRIT 21.8 % (42.0-52.0); HEMOGLOBIN 7.3 g/dl (14.0-18.0); LYMPHOCYTES # 0.8 10^3/ul (0.8-2.9); LYMPHOCYTES % 8.6 % (15.0-51.0); MEAN CORPUSCULAR HEMOGLOBIN 28.2 pg (29.0-33.0); MEAN CORPUSCULAR HGB CONC 33.5 g/dl (32.0-37.0); MEAN CORPUSCULAR VOLUME 84.2 fl (82.0-101.0); MEAN PLATELET VOLUME 10.3 fl (7.4-10.4); MONOCYTE # 0.9 10^3/ul (0.3-0.9); MONOCYTES % 9.3 % (0.0-11.0); NEUTROPHIL # 7.2 10^3/ul (1.6-7.5); NEUTROPHILS % 74.7 % (39.0-77.0); PLATELET COUNT 188 10^3/UL (140-415); RED BLOOD COUNT 2.59 10^6/ul (4.70-6.10); RED CELL DISTRIBUTION WIDTH 14.4 % (11.5-14.5)
[2017-09-02 06:29] LABS: ANION GAP 14 (8-16); BLOOD UREA NITROGEN 66 mg/dl (7-20); CALCIUM 6.1 mg/dl (8.4-10.2); CARBON DIOXIDE 19 mmol/L (21-31); CHLORIDE 105 mmol/L (97-110); CREATININE 4.37 mg/dl (0.61-1.24); GLUCOSE 195 mg/dl (70-220); MAGNESIUM 1.8 mg/dl (1.7-2.5); PHOSPHORUS 6.2 mg/dl (2.5-4.9); POTASSIUM 4.6 mmol/L (3.5-5.1); SODIUM 133 mmol/L (135-144)
[2017-09-02] MEDS: GUAIFENESIN/DM (SR) TAB PO ×2 (08:28→21:03)
[2017-09-02] MEDS: LORATADINE 10 MG TAB NGT (08:29)
[2017-09-02] MEDS: CALCIUM CARBONATE 500 MG CHEW TAB PO ×3 (08:29→19:33)
[2017-09-02] MEDS: NA BICARBONATE 650 MG TAB PO ×2 (08:29→21:02)
[2017-09-02] MEDS: AMLODIPINE 5 MG TAB PO ×2 (08:29→21:04)
[2017-09-02] MEDS: FLUCONAZOLE 100 MG TAB PO (08:29)
[2017-09-02] MEDS: LINAGLIPTIN 5 MG TABLET PO (08:29)
[2017-09-02] MEDS: METOPROLOL 25 MG TAB PO ×2 (08:29→21:04)
[2017-09-02] MEDS: INSULIN ASPART [NOVOLOG] 3 ML PEN SC ×4 (08:37→21:07)
[2017-09-02] MEDS: HEPARIN 5,000 UNIT/0.5 ML VIAL SC ×2 (08:38→21:08)
[2017-09-02] MEDS: NYSTATIN 30 GM POWDER BTL TOP ×2 (12:41→21:11)
[2017-09-02] MEDS: SOD CHLORIDE 0.9% 500 ML IV (17:33)
[2017-09-02] MEDS: FAMOTIDINE 20 MG TAB PO (21:04)
[2017-09-02] MEDS: oxyCODONE 5 MG TAB PO (23:41)
[2017-09-03] MEDS: ACCU-CHEK XX (02:00)
[2017-09-03 04:56] LABS: ADD MAN DIFF? NO
[2017-09-03 05:07] LABS: WHITE BLOOD COUNT 8.4 10^3/ul (4.8-10.8)
[2017-09-03 05:07] LABS: BASOPHILS % 0.2 % (0.0-2.0); EOSINOPHILS # 0.8 10^3/ul (0.0-0.5); EOSINOPHILS % 8.9 % (0.0-7.0); HEMATOCRIT 20.4 % (42.0-52.0); LYMPHOCYTES # 1.1 10^3/ul (0.8-2.9); LYMPHOCYTES % 12.6 % (15.0-51.0); MEAN CORPUSCULAR HEMOGLOBIN 27.8 pg (29.0-33.0); MEAN CORPUSCULAR HGB CONC 34.3 g/dl (32.0-37.0); MEAN PLATELET VOLUME 10.4 fl (7.4-10.4); MONOCYTE # 0.8 10^3/ul (0.3-0.9); MONOCYTES % 9.6 % (0.0-11.0); NEUTROPHIL # 5.7 10^3/ul (1.6-7.5); NEUTROPHILS % 67.6 % (39.0-77.0); PLATELET COUNT 228 10^3/UL (140-415); RED BLOOD COUNT 2.52 10^6/ul (4.70-6.10); RED CELL DISTRIBUTION WIDTH 14.2 % (11.5-14.5)
[2017-09-03 05:16] LABS: CREATINE KINASE 131 IU/L (23-200)
[2017-09-03 05:19] LABS: ANION GAP 12 (8-16); BLOOD UREA NITROGEN 66 mg/dl (7-20); CALCIUM 6.8 mg/dl (8.4-10.2); CARBON DIOXIDE 22 mmol/L (21-31); CHLORIDE 104 mmol/L (97-110); CREATININE 5.01 mg/dl (0.61-1.24); GLUCOSE 177 mg/dl (70-220); MAGNESIUM 1.9 mg/dl (1.7-2.5); POTASSIUM 4.8 mmol/L (3.5-5.1); SODIUM 133 mmol/L (135-144)
[2017-09-03] MEDS: GUAIFENESIN/DM (SR) TAB PO ×2 (08:15→21:31)
[2017-09-03] MEDS: LORATADINE 10 MG TAB NGT (08:15)
[2017-09-03] MEDS: AMLODIPINE 5 MG TAB PO (08:16)
[2017-09-03] MEDS: NA BICARBONATE 650 MG TAB PO (08:16)
[2017-09-03] MEDS: CALCIUM CARBONATE 500 MG CHEW TAB PO (08:16)
[2017-09-03] MEDS: LINAGLIPTIN 5 MG TABLET PO (08:16)
[2017-09-03] MEDS: FLUCONAZOLE 100 MG TAB PO (08:16)
[2017-09-03] MEDS: METOPROLOL 25 MG TAB PO ×2 (08:16→21:31)
[2017-09-03] MEDS: INSULIN ASPART [NOVOLOG] 3 ML PEN SC ×4 (08:17→21:29)
[2017-09-03] MEDS: HEPARIN 5,000 UNIT/0.5 ML VIAL SC ×3 (08:19→20:53)
[2017-09-03] MEDS: NYSTATIN 30 GM POWDER BTL TOP ×2 (08:21→21:40)
[2017-09-03] MEDS ORDERED: SOD CHLORIDE 0.9% 250 ML IV* (11:18)
[2017-09-03] MEDS: SOD CHLORIDE 0.45% 1,000 ML IV ×2 (11:45→21:30)
[2017-09-03] MEDS: CALCIUM CARBONATE 750 MG CHEW TAB PO ×2 (12:22→18:11)
[2017-09-03 13:01] LABS: ADD UMIC YES; UR ASCORBIC ACID NEGATIVE (NEGATIVE); UR BACTERIA FEW /HPF (NONE SEEN); UR BILIRUBIN (Dip) NEGATIVE (NEGATIVE); UR BLOOD (Dip) 3+ mg/dL (NEGATIVE); UR CLARITY SLIGHTLY CLOUDY (CLEAR); UR COLOR YELLOW (YELLOW); UR GLUCOSE (Dip) 1+ mg/dL (NEGATIVE); UR KETONES (Dip) NEGATIVE (NEGATIVE); UR LEUKOCYTE ESTERASE (Dip) NEGATIVE Leu/ul (NEGATIVE); UR NITRITE (Dip) NEGATIVE (NEGATIVE); UR RBC 160 /HPF (0-5); UR TOTAL PROTEIN (Dip) 2+ mg/dl (NEGATIVE); UR UROBILINOGEN (Dip) NEGATIVE (NEGATIVE); UR WBC 18 /HPF (0-5)
[2017-09-03] MEDS: CALCITRIOL 0.25 MCG CAP PO (13:25)
[2017-09-03] MEDS: DAPTOMYCIN 500 MG in SOD CHLORIDE 0.9% 100 ML IVPB (19:49)
[2017-09-03] MEDS: FAMOTIDINE 20 MG TAB PO (21:30)
[2017-09-03] MEDS: AMLODIPINE 2.5 MG TAB PO (21:31)
[2017-09-03 22:14] LABS: IMMEDIATE SPIN CROSSMATCH 1 2
[2017-09-04] MEDS: ACCU-CHEK XX (02:00)
[2017-09-04 08:19] LABS: Allen Test ACCEPTAB; Arterial Base Excess -2.6 mmol/L (-3.0-3); Arterial Blood Gas Oxygen Sat 90.1 mmHG (95.0-98.0); Arterial COHb 0.6 % (0.0-3.0); Arterial Fraction of Oxyhgb 89.5 % (93.0-99.0); Arterial HCO3 21.2 mmol/L (22.0-26.0); Arterial MetHb 0.1 % (0.0-1.5); Arterial Total Hemglobin 9.1 g/dl (12.0-18.0); Arterial pCO2 32.5 mmhg (35-45); MODE ROOM AIR; Site Left Radial
[2017-09-04] MEDS: CALCITRIOL 0.25 MCG CAP PO (09:02)
[2017-09-04] MEDS: CALCIUM CARBONATE 750 MG CHEW TAB PO ×3 (09:02→17:20)
[2017-09-04] MEDS: LINAGLIPTIN 5 MG TABLET PO (09:03)
[2017-09-04] MEDS: GUAIFENESIN/DM (SR) TAB PO ×2 (09:03→20:31)
[2017-09-04] MEDS: AMLODIPINE 2.5 MG TAB PO ×2 (09:03→20:32)
[2017-09-04] MEDS: LORATADINE 10 MG TAB NGT (09:03)
[2017-09-04] MEDS: FLUCONAZOLE 100 MG TAB PO (09:03)
[2017-09-04] MEDS: METOPROLOL 25 MG TAB PO ×2 (09:03→20:32)
[2017-09-04] MEDS: INSULIN ASPART [NOVOLOG] 3 ML PEN SC ×4 (09:07→20:38)
[2017-09-04] MEDS: HEPARIN 5,000 UNIT/0.5 ML VIAL SC ×2 (09:08→20:40)
[2017-09-04 10:25] LABS: ADD MAN DIFF? NO
[2017-09-04 10:38] LABS: WHITE BLOOD COUNT 7.7 10^3/ul (4.8-10.8)
[2017-09-04 10:38] LABS: BASOPHILS % 0.5 % (0.0-2.0); EOSINOPHILS # 0.5 10^3/ul (0.0-0.5); HEMATOCRIT 25.9 % (42.0-52.0); LYMPHOCYTES # 0.8 10^3/ul (0.8-2.9); LYMPHOCYTES % 10.5 % (15.0-51.0); MEAN CORPUSCULAR HEMOGLOBIN 28.3 pg (29.0-33.0); MEAN CORPUSCULAR HGB CONC 34.7 g/dl (32.0-37.0); MEAN CORPUSCULAR VOLUME 81.4 fl (82.0-101.0); MONOCYTE # 0.7 10^3/ul (0.3-0.9); MONOCYTES % 8.8 % (0.0-11.0); NEUTROPHIL # 5.6 10^3/ul (1.6-7.5); NEUTROPHILS % 72.2 % (39.0-77.0); PLATELET COUNT 246 10^3/UL (140-415); RED BLOOD COUNT 3.18 10^6/ul (4.70-6.10); RED CELL DISTRIBUTION WIDTH 14.3 % (11.5-14.5)
[2017-09-04] MEDS: SOD CHLORIDE 0.45% 1,000 ML IV ×2 (10:43→17:30)
[2017-09-04 10:50] LABS: PHOSPHORUS 6.5 mg/dl (2.5-4.9)
[2017-09-04 10:50] LABS: ANION GAP 12 (8-16); BLOOD UREA NITROGEN 72 mg/dl (7-20); CALCIUM 6.9 mg/dl (8.4-10.2); CARBON DIOXIDE 21 mmol/L (21-31); CHLORIDE 104 mmol/L (97-110); CREATININE 4.87 mg/dl (0.61-1.24); GLUCOSE 194 mg/dl (70-220); LIPASE 192 U/L (23-300); MAGNESIUM 1.8 mg/dl (1.7-2.5); POTASSIUM 5.1 mmol/L (3.5-5.1); SODIUM 132 mmol/L (135-144)
[2017-09-04 11:11] LABS: LACTIC ACID 1.2 mmol/L (0.5-2.0)
[2017-09-04 12:03] LABS: ERYTHROCYTE SEDIMENTATION RATE 70 mm/Hr (0-20)
[2017-09-04] MEDS: NYSTATIN 30 GM POWDER BTL TOP ×2 (13:13→21:02)
[2017-09-04] MEDS: FAMOTIDINE 20 MG TAB PO (20:32)
[2017-09-04] MEDS: ZOLPIDEM 5 MG TAB PO (22:01)
[2017-09-05] MEDS: ACCU-CHEK XX (02:00)
[2017-09-05] MEDS: SOD CHLORIDE 0.45% 1,000 ML IV ×3 (03:17→14:46)
[2017-09-05 05:34] LABS: ADD MAN DIFF? NO
[2017-09-05 05:44] LABS: WHITE BLOOD COUNT 8.3 10^3/ul (4.8-10.8)
[2017-09-05 05:44] LABS: BASOPHIL # 0.1 10^3/ul (0.0-0.1); BASOPHILS % 0.6 % (0.0-2.0); EOSINOPHILS # 0.7 10^3/ul (0.0-0.5); EOSINOPHILS % 7.8 % (0.0-7.0); HEMATOCRIT 28.2 % (42.0-52.0); HEMOGLOBIN 9.4 g/dl (14.0-18.0); MEAN CORPUSCULAR HGB CONC 33.3 g/dl (32.0-37.0); MEAN CORPUSCULAR VOLUME 83.9 fl (82.0-101.0); MEAN PLATELET VOLUME 9.8 fl (7.4-10.4); MONOCYTE # 0.8 10^3/ul (0.3-0.9); NEUTROPHIL # 5.8 10^3/ul (1.6-7.5); NEUTROPHILS % 69.5 % (39.0-77.0); PLATELET COUNT 252 10^3/UL (140-415); RED BLOOD COUNT 3.36 10^6/ul (4.70-6.10)
[2017-09-05 06:28] LABS: ANION GAP 11 (8-16); BLOOD UREA NITROGEN 71 mg/dl (7-20); CALCIUM 7.1 mg/dl (8.4-10.2); CARBON DIOXIDE 22 mmol/L (21-31); CHLORIDE 105 mmol/L (97-110); CREATININE 4.95 mg/dl (0.61-1.24); GLUCOSE 119 mg/dl (70-220); MAGNESIUM 1.9 mg/dl (1.7-2.5); PHOSPHORUS 7.2 mg/dl (2.5-4.9); POTASSIUM 5.1 mmol/L (3.5-5.1); SODIUM 133 mmol/L (135-144)
[2017-09-05] MEDS: INSULIN ASPART [NOVOLOG] 3 ML PEN SC ×4 (08:00→21:00)
[2017-09-05] MEDS: METOPROLOL 25 MG TAB PO ×2 (08:32→20:42)
[2017-09-05] MEDS: GUAIFENESIN/DM (SR) TAB PO ×2 (08:32→20:43)
[2017-09-05] MEDS: CALCITRIOL 0.25 MCG CAP PO (08:32)
[2017-09-05] MEDS: HEPARIN 5,000 UNIT/0.5 ML VIAL SC ×2 (08:32→21:31)
[2017-09-05] MEDS: CALCIUM CARBONATE 750 MG CHEW TAB PO ×3 (08:32→17:33)
[2017-09-05] MEDS: FLUCONAZOLE 100 MG TAB PO (08:32)
[2017-09-05] MEDS: LORATADINE 10 MG TAB NGT (08:33)
[2017-09-05] MEDS: LINAGLIPTIN 5 MG TABLET PO (08:33)
[2017-09-05] MEDS: AMLODIPINE 2.5 MG TAB PO ×2 (08:33→20:43)
[2017-09-05] MEDS: NYSTATIN 30 GM POWDER BTL TOP ×2 (08:33→20:35)
[2017-09-05] MEDS: CALCIUM ACETATE 667 MG CAP PO (17:30)
[2017-09-05] MEDS: FUROSEMIDE 40 MG INJ IV (17:30)
[2017-09-05] MEDS: FAMOTIDINE 20 MG TAB PO (20:43)
[2017-09-05] MEDS: LACTOBACILLUS RHAMNOSUS CAP PO (20:43)
[2017-09-05] MEDS: ZOLPIDEM 5 MG TAB PO (22:58)
[2017-09-06] MEDS: ACCU-CHEK XX (02:00)
[2017-09-06] MEDS: SOD CHLORIDE 0.45% 1,000 ML IV ×3 (05:10→19:30)
[2017-09-06 06:29] LABS: ADD MAN DIFF? NO
[2017-09-06 06:35] LABS: RETICULOCYTE RBC 3.24; WHITE BLOOD COUNT 8.8 10^3/ul (4.8-10.8)
[2017-09-06 06:35] LABS: BASOPHIL # 0.1 10^3/ul (0.0-0.1); BASOPHILS % 0.6 % (0.0-2.0); EOSINOPHILS # 0.7 10^3/ul (0.0-0.5); EOSINOPHILS % 7.9 % (0.0-7.0); HEMATOCRIT 26.6 % (42.0-52.0); HEMOGLOBIN 9.2 g/dl (14.0-18.0); LYMPHOCYTES # 0.8 10^3/ul (0.8-2.9); LYMPHOCYTES % 9.6 % (15.0-51.0); MEAN CORPUSCULAR HEMOGLOBIN 28.4 pg (29.0-33.0); MEAN CORPUSCULAR HGB CONC 34.6 g/dl (32.0-37.0); MEAN CORPUSCULAR VOLUME 82.1 fl (82.0-101.0); MEAN PLATELET VOLUME 10.1 fl (7.4-10.4); MONOCYTE # 0.9 10^3/ul (0.3-0.9); MONOCYTES % 9.9 % (0.0-11.0); NEUTROPHIL # 6.2 10^3/ul (1.6-7.5); NEUTROPHILS % 70.5 % (39.0-77.0); PLATELET COUNT 231 10^3/UL (140-415); RED BLOOD COUNT 3.24 10^6/ul (4.70-6.10); RED CELL DISTRIBUTION WIDTH 13.9 % (11.5-14.5); RETICULOCYTE COUNT # 0.103 X10^6 (0.020-0.110); RETICULOCYTE COUNT % 3.2 % (0.5-1.5)
[2017-09-06 06:50] LABS: INR 1.09; PROTIME 14.2 Sec (11.9-14.9); PT RATIO 1.1
[2017-09-06] MEDS: INSULIN ASPART [NOVOLOG] 3 ML PEN SC ×4 (08:00→21:00)
[2017-09-06 08:57] LABS: ALANINE AMINOTRANSFERASE 24 IU/L (13-69); ALBUMIN 1.9 g/dl (3.3-4.9); ALBUMIN/GLOBULIN RATIO 0.48; ALKALINE PHOSPHATASE 114 IU/L (42-121); ANION GAP 13 (8-16); ASPARTATE AMINO TRANSFERASE 30 IU/L (15-46); BILIRUBIN,INDIRECT 0.2 mg/dl (0-1.1); BILIRUBIN,TOTAL 0.2 mg/dl (0.2-1.3); BLOOD UREA NITROGEN 73 mg/dl (7-20); CALCIUM 7.2 mg/dl (8.4-10.2); CARBON DIOXIDE 21 mmol/L (21-31); CHLORIDE 103 mmol/L (97-110); GLUCOSE 152 mg/dl (70-220); POTASSIUM 4.7 mmol/L (3.5-5.1); SODIUM 132 mmol/L (135-144); TOTAL PROTEIN 5.8 g/dl (6.1-8.1)
[2017-09-06] MEDS: CALCIUM CARBONATE 750 MG CHEW TAB PO ×3 (09:00→21:03)
[2017-09-06] MEDS: HEPARIN 5,000 UNIT/0.5 ML VIAL SC ×2 (09:10→21:04)
[2017-09-06] MEDS: GUAIFENESIN/DM (SR) TAB PO ×2 (09:11→21:03)
[2017-09-06] MEDS: CALCITRIOL 0.25 MCG CAP PO (09:11)
[2017-09-06] MEDS: LACTOBACILLUS RHAMNOSUS CAP PO ×2 (09:11→21:03)
[2017-09-06] MEDS: AMLODIPINE 2.5 MG TAB PO ×2 (09:12→21:03)
[2017-09-06] MEDS: LINAGLIPTIN 5 MG TABLET PO (09:12)
[2017-09-06] MEDS: LORATADINE 10 MG TAB NGT (09:13)
[2017-09-06] MEDS: METOPROLOL 25 MG TAB PO (09:13)
[2017-09-06] MEDS: NYSTATIN 30 GM POWDER BTL TOP ×2 (09:23→21:11)
[2017-09-06] MEDS: CALCIUM ACETATE 667 MG CAP PO ×3 (09:35→17:03)
[2017-09-06] MEDS: METOPROLOL 50 MG TAB PO (21:02)
[2017-09-06] MEDS: FAMOTIDINE 20 MG TAB PO (21:03)
[2017-09-07] MEDS: ACCU-CHEK XX (02:00)
[2017-09-07] MEDS ORDERED: LIDOCAINE 2%/EPI 30 ML INJ (06:06)
[2017-09-07 06:11] LABS: ADD MAN DIFF? NO
[2017-09-07 06:16] LABS: WHITE BLOOD COUNT 8.1 10^3/ul (4.8-10.8)
[2017-09-07 06:16] LABS: BASOPHIL # 0.1 10^3/ul (0.0-0.1); BASOPHILS % 0.7 % (0.0-2.0); EOSINOPHILS # 0.6 10^3/ul (0.0-0.5); EOSINOPHILS % 7.3 % (0.0-7.0); HEMATOCRIT 26.7 % (42.0-52.0); HEMOGLOBIN 9.2 g/dl (14.0-18.0); LYMPHOCYTES % 12.1 % (15.0-51.0); MEAN CORPUSCULAR HEMOGLOBIN 28.6 pg (29.0-33.0); MEAN CORPUSCULAR HGB CONC 34.5 g/dl (32.0-37.0); MEAN CORPUSCULAR VOLUME 82.9 fl (82.0-101.0); MEAN PLATELET VOLUME 9.9 fl (7.4-10.4); MONOCYTE # 0.7 10^3/ul (0.3-0.9); MONOCYTES % 8.5 % (0.0-11.0); NEUTROPHIL # 5.7 10^3/ul (1.6-7.5); NEUTROPHILS % 70.5 % (39.0-77.0); PLATELET COUNT 213 10^3/UL (140-415); RED BLOOD COUNT 3.22 10^6/ul (4.70-6.10)
[2017-09-07 06:31] LABS: INR 1.12; PROTIME 14.6 Sec (11.9-14.9); PT RATIO 1.1
[2017-09-07 06:55] LABS: ANION GAP 12 (8-16); BLOOD UREA NITROGEN 72 mg/dl (7-20); CALCIUM 7.6 mg/dl (8.4-10.2); CARBON DIOXIDE 22 mmol/L (21-31); CHLORIDE 103 mmol/L (97-110); CREATININE 4.98 mg/dl (0.61-1.24); GLUCOSE 107 mg/dl (70-220); POTASSIUM 4.8 mmol/L (3.5-5.1); SODIUM 132 mmol/L (135-144)
[2017-09-07] MEDS: CALCIUM ACETATE 667 MG CAP PO ×3 (07:35→17:38)
[2017-09-07] MEDS: INSULIN ASPART [NOVOLOG] 3 ML PEN SC ×4 (08:00→20:00)
[2017-09-07] MEDS: AMLODIPINE 2.5 MG TAB PO ×2 (08:19→20:02)
[2017-09-07] MEDS: LACTOBACILLUS RHAMNOSUS CAP PO ×2 (08:19→20:01)
[2017-09-07] MEDS: METOPROLOL 50 MG TAB PO ×2 (08:19→20:01)
[2017-09-07] MEDS: LORATADINE 10 MG TAB NGT (08:19)
[2017-09-07] MEDS: GUAIFENESIN/DM (SR) TAB PO ×2 (08:19→20:00)
[2017-09-07] MEDS: CALCIUM CARBONATE 750 MG CHEW TAB PO ×3 (08:20→19:52)
[2017-09-07] MEDS: LINAGLIPTIN 5 MG TABLET PO (08:20)
[2017-09-07] MEDS: CALCITRIOL 0.25 MCG CAP PO (08:20)
[2017-09-07] MEDS: NYSTATIN 30 GM POWDER BTL TOP ×2 (08:20→20:08)
[2017-09-07] MEDS: HEPARIN 5,000 UNIT/0.5 ML VIAL SC ×2 (08:20→20:11)
[2017-09-07] MEDS: EPOETIN 3000 UNITS/1 ML INJ (ESRD) SC (17:39)
[2017-09-07] MEDS: FAMOTIDINE 20 MG TAB PO (20:01)
[2017-09-08] MEDS: morphine 2 MG INJ IV (00:10)
[2017-09-08] MEDS: ACCU-CHEK XX (02:00)
[2017-09-08] MEDS: INSULIN ASPART [NOVOLOG] 3 ML PEN SC ×4 (08:00→21:00)
[2017-09-08] MEDS: METOPROLOL 50 MG TAB PO ×2 (09:00→20:56)
[2017-09-08] MEDS: HEPARIN 5,000 UNIT/0.5 ML VIAL SC ×2 (09:00→20:57)
[2017-09-08] MEDS: AMLODIPINE 2.5 MG TAB PO ×2 (09:00→20:56)
[2017-09-08] MEDS: CALCIUM CARBONATE 750 MG CHEW TAB PO ×3 (09:00→20:56)
[2017-09-08] MEDS ORDERED: HEPARIN 1000 UNITS/ML 10 ML INJ (10:53)
[2017-09-08] MEDS ORDERED: FENTAnyl 50 MCG/ML VIAL (10:53)
[2017-09-08] MEDS ORDERED: LIDOCAINE 1% (MDV) 20 ML INJ (10:53)
[2017-09-08] MEDS ORDERED: SOD CHLORIDE 0.9% 500 ML (10:53)
[2017-09-08] MEDS ORDERED: IODIXANOL LOCM 100 ML BTL (10:53)
[2017-09-08] MEDS ORDERED: MIDAZOLAM 1 MG/ML 2 ML INJ (10:53)
[2017-09-08] MEDS: CALCIUM ACETATE 667 MG CAP PO ×3 (11:30→17:35)
[2017-09-08] MEDS: NYSTATIN 30 GM POWDER BTL TOP ×2 (12:05→21:07)
[2017-09-08] MEDS: LORATADINE 10 MG TAB NGT (12:07)
[2017-09-08] MEDS: LINAGLIPTIN 5 MG TABLET PO (12:08)
[2017-09-08] MEDS: LACTOBACILLUS RHAMNOSUS CAP PO ×2 (12:08→20:56)
[2017-09-08] MEDS: CALCITRIOL 0.25 MCG CAP PO (12:08)
[2017-09-08] MEDS: GUAIFENESIN/DM (SR) TAB PO ×2 (12:08→20:56)
[2017-09-08] MEDS: FAMOTIDINE 20 MG TAB PO (20:56)
[2017-09-09] MEDS: ACCU-CHEK XX (02:00)
[2017-09-09 07:20] LABS: ADD MAN DIFF? NO
[2017-09-09 07:37] LABS: WHITE BLOOD COUNT 7.2 10^3/ul (4.8-10.8)
[2017-09-09 07:37] LABS: BASOPHILS % 0.6 % (0.0-2.0); EOSINOPHILS # 0.6 10^3/ul (0.0-0.5); EOSINOPHILS % 8.9 % (0.0-7.0); HEMATOCRIT 27.6 % (42.0-52.0); HEMOGLOBIN 9.2 g/dl (14.0-18.0); LYMPHOCYTES # 0.9 10^3/ul (0.8-2.9); LYMPHOCYTES % 12.7 % (15.0-51.0); MEAN CORPUSCULAR HEMOGLOBIN 28.2 pg (29.0-33.0); MEAN CORPUSCULAR HGB CONC 33.3 g/dl (32.0-37.0); MEAN CORPUSCULAR VOLUME 84.7 fl (82.0-101.0); MEAN PLATELET VOLUME 9.6 fl (7.4-10.4); MONOCYTE # 0.9 10^3/ul (0.3-0.9); MONOCYTES % 11.8 % (0.0-11.0); NEUTROPHIL # 4.7 10^3/ul (1.6-7.5); NEUTROPHILS % 65.3 % (39.0-77.0); PLATELET COUNT 189 10^3/UL (140-415); RED BLOOD COUNT 3.26 10^6/ul (4.70-6.10)
[2017-09-09 07:51] LABS: ANION GAP 12 (8-16); BLOOD UREA NITROGEN 56 mg/dl (7-20); CALCIUM 7.4 mg/dl (8.4-10.2); CARBON DIOXIDE 24 mmol/L (21-31); CHLORIDE 106 mmol/L (97-110); CREATININE 4.35 mg/dl (0.61-1.24); GLUCOSE 133 mg/dl (70-220); POTASSIUM 4.3 mmol/L (3.5-5.1); SODIUM 138 mmol/L (135-144)
[2017-09-09] MEDS: CALCIUM ACETATE 667 MG CAP PO ×3 (08:00→17:28)
[2017-09-09] MEDS: INSULIN ASPART [NOVOLOG] 3 ML PEN SC ×4 (08:02→21:00)
[2017-09-09] MEDS: HEPARIN 5,000 UNIT/0.5 ML VIAL SC ×2 (08:56→22:04)
[2017-09-09] MEDS: CALCITRIOL 0.25 MCG CAP PO (08:57)
[2017-09-09] MEDS: LINAGLIPTIN 5 MG TABLET PO (08:57)
[2017-09-09] MEDS: LACTOBACILLUS RHAMNOSUS CAP PO ×2 (08:57→22:06)
[2017-09-09] MEDS: METOPROLOL 50 MG TAB PO ×2 (08:57→22:10)
[2017-09-09] MEDS: LORATADINE 10 MG TAB NGT (08:57)
[2017-09-09] MEDS: AMLODIPINE 2.5 MG TAB PO ×2 (08:58→22:10)
[2017-09-09] MEDS: CALCIUM CARBONATE 750 MG CHEW TAB PO ×3 (09:00→19:05)
[2017-09-09] MEDS: GUAIFENESIN/DM (SR) TAB PO ×2 (09:00→22:06)
[2017-09-09 09:06] LABS: HAAIG REFLEX REFLEX FILED
[2017-09-09] MEDS: NYSTATIN 30 GM POWDER BTL TOP ×2 (09:10→22:09)
[2017-09-09 10:42] LABS: HEPATITIS B CORE ANTIBODY REACTIVE (NEGATIVE)
[2017-09-09 10:42] LABS: HEPATITIS C VIRAL ANTIBODY NEGATIVE (NEGATIVE)
[2017-09-09 10:53] LABS: HEPATITIS B SURFACE ANTIGEN POSITIVE (NEGATIVE); HEPATITIS C VIRAL ANTIBODY REACTIVE (NEGATIVE)
[2017-09-09] MEDS: EPOETIN 3000 UNITS/1 ML INJ (ESRD) SC (17:28)
[2017-09-09] MEDS: FAMOTIDINE 20 MG TAB PO (22:06)
[2017-09-10] MEDS: ACCU-CHEK XX (02:00)
[2017-09-10 05:28] LABS: ADD MAN DIFF? NO
[2017-09-10 05:49] LABS: BASOPHILS % 0.6 % (0.0-2.0); EOSINOPHILS # 0.6 10^3/ul (0.0-0.5); EOSINOPHILS % 8.9 % (0.0-7.0); HEMATOCRIT 25.8 % (42.0-52.0); HEMOGLOBIN 8.6 g/dl (14.0-18.0); LYMPHOCYTES # 1.1 10^3/ul (0.8-2.9); LYMPHOCYTES % 16.1 % (15.0-51.0); MEAN CORPUSCULAR HEMOGLOBIN 28.4 pg (29.0-33.0); MEAN CORPUSCULAR HGB CONC 33.3 g/dl (32.0-37.0); MEAN CORPUSCULAR VOLUME 85.1 fl (82.0-101.0); MEAN PLATELET VOLUME 10.4 fl (7.4-10.4); MONOCYTE # 0.6 10^3/ul (0.3-0.9); MONOCYTES % 8.8 % (0.0-11.0); NEUTROPHIL # 4.5 10^3/ul (1.6-7.5); NEUTROPHILS % 65.2 % (39.0-77.0); PLATELET COUNT 146 10^3/UL (140-415); RED BLOOD COUNT 3.03 10^6/ul (4.70-6.10); RED CELL DISTRIBUTION WIDTH 14.2 % (11.5-14.5)
[2017-09-10 06:31] LABS: HEPATITIS B SURFACE ANTIGEN REACTIVE (NON-REACTIVE)
[2017-09-10 06:39] LABS: ANION GAP 8 (8-16); BLOOD UREA NITROGEN 42 mg/dl (7-20); CALCIUM 7.7 mg/dl (8.4-10.2); CARBON DIOXIDE 29 mmol/L (21-31); CHLORIDE 104 mmol/L (97-110); CREATININE 3.91 mg/dl (0.61-1.24); GLUCOSE 176 mg/dl (70-220); POTASSIUM 4.2 mmol/L (3.5-5.1); SODIUM 137 mmol/L (135-144)
[2017-09-10] MEDS: CALCIUM ACETATE 667 MG CAP PO ×3 (08:50→17:16)
[2017-09-10] MEDS: INSULIN ASPART [NOVOLOG] 3 ML PEN SC ×4 (08:53→21:29)
[2017-09-10] MEDS: HEPARIN 5,000 UNIT/0.5 ML VIAL SC ×2 (08:53→21:27)
[2017-09-10] MEDS: LACTOBACILLUS RHAMNOSUS CAP PO ×2 (08:54→21:16)
[2017-09-10] MEDS: CALCITRIOL 0.25 MCG CAP PO (08:54)
[2017-09-10] MEDS: LINAGLIPTIN 5 MG TABLET PO (08:54)
[2017-09-10] MEDS: LORATADINE 10 MG TAB NGT (08:54)
[2017-09-10] MEDS: CALCIUM CARBONATE 750 MG CHEW TAB PO ×3 (08:54→19:05)
[2017-09-10] MEDS: GUAIFENESIN/DM (SR) TAB PO ×2 (08:55→21:16)
[2017-09-10] MEDS: AMLODIPINE 2.5 MG TAB PO ×2 (08:55→21:16)
[2017-09-10] MEDS: METOPROLOL 50 MG TAB PO ×2 (08:55→21:17)
[2017-09-10] MEDS: NYSTATIN 30 GM POWDER BTL TOP ×2 (09:03→21:29)
[2017-09-10] MEDS: FAMOTIDINE 20 MG TAB PO (21:20)
[2017-09-11] MEDS: ACCU-CHEK XX (02:45)
[2017-09-11 05:51] LABS: ADD MAN DIFF? NO
[2017-09-11 06:03] LABS: WHITE BLOOD COUNT 6.4 10^3/ul (4.8-10.8)
[2017-09-11 06:03] LABS: BASOPHILS % 0.5 % (0.0-2.0); EOSINOPHILS # 0.6 10^3/ul (0.0-0.5); EOSINOPHILS % 10.1 % (0.0-7.0); HEMATOCRIT 25.6 % (42.0-52.0); HEMOGLOBIN 8.5 g/dl (14.0-18.0); LYMPHOCYTES # 1.1 10^3/ul (0.8-2.9); LYMPHOCYTES % 17.9 % (15.0-51.0); MEAN CORPUSCULAR HEMOGLOBIN 28.4 pg (29.0-33.0); MEAN CORPUSCULAR HGB CONC 33.2 g/dl (32.0-37.0); MEAN CORPUSCULAR VOLUME 85.6 fl (82.0-101.0); MEAN PLATELET VOLUME 11.3 fl (7.4-10.4); MONOCYTE # 0.6 10^3/ul (0.3-0.9); MONOCYTES % 9.3 % (0.0-11.0); NEUTROPHIL # 3.9 10^3/ul (1.6-7.5); NEUTROPHILS % 61.7 % (39.0-77.0); PLATELET COUNT 132 10^3/UL (140-415); RED BLOOD COUNT 2.99 10^6/ul (4.70-6.10); RED CELL DISTRIBUTION WIDTH 14.3 % (11.5-14.5)
[2017-09-11 06:54] LABS: ANION GAP 13 (8-16); BLOOD UREA NITROGEN 35 mg/dl (7-20); CALCIUM 7.5 mg/dl (8.4-10.2); CARBON DIOXIDE 27 mmol/L (21-31); CHLORIDE 104 mmol/L (97-110); CREATININE 3.56 mg/dl (0.61-1.24); GLUCOSE 146 mg/dl (70-220); POTASSIUM 3.8 mmol/L (3.5-5.1); SODIUM 140 mmol/L (135-144)
[2017-09-11] MEDS: INSULIN ASPART [NOVOLOG] 3 ML PEN SC ×4 (08:00→21:00)
[2017-09-11] MEDS: CALCIUM ACETATE 667 MG CAP PO ×3 (08:03→17:23)
[2017-09-11] MEDS: HEPARIN 5,000 UNIT/0.5 ML VIAL SC ×2 (08:04→21:23)
[2017-09-11] MEDS: LACTOBACILLUS RHAMNOSUS CAP PO ×2 (08:07→21:17)
[2017-09-11] MEDS: LORATADINE 10 MG TAB NGT (08:07)
[2017-09-11] MEDS: CALCIUM CARBONATE 750 MG CHEW TAB PO ×3 (08:07→19:05)
[2017-09-11] MEDS: LINAGLIPTIN 5 MG TABLET PO (08:07)
[2017-09-11] MEDS: CALCITRIOL 0.25 MCG CAP PO (08:07)
[2017-09-11] MEDS: METOPROLOL 50 MG TAB PO ×2 (08:08→21:17)
[2017-09-11] MEDS: GUAIFENESIN/DM (SR) TAB PO ×2 (08:09→21:00)
[2017-09-11] MEDS: AMLODIPINE 2.5 MG TAB PO ×2 (08:09→21:17)
[2017-09-11] MEDS: NYSTATIN 30 GM POWDER BTL TOP ×2 (08:12→21:22)
[2017-09-11] MEDS: EPOETIN 10000 UNITS/1 ML INJ (ESRD) SC (11:53)
[2017-09-11] MEDS: FAMOTIDINE 20 MG TAB PO (21:17)
[2017-09-12] MEDS: ACCU-CHEK XX (02:00)
[2017-09-12 06:43] LABS: ADD MAN DIFF? NO
[2017-09-12 06:47] LABS: WHITE BLOOD COUNT 6.9 10^3/ul (4.8-10.8)
[2017-09-12 06:47] LABS: LYMPHOCYTES % 19.4 % (15.0-51.0); MEAN CORPUSCULAR HEMOGLOBIN 28.6 pg (29.0-33.0); MEAN CORPUSCULAR HGB CONC 33.3 g/dl (32.0-37.0); MEAN CORPUSCULAR VOLUME 85.7 fl (82.0-101.0); MEAN PLATELET VOLUME 10.5 fl (7.4-10.4); NEUTROPHILS % 62.6 % (39.0-77.0); PLATELET COUNT 129 10^3/UL (140-415); RED BLOOD COUNT 3.15 10^6/ul (4.70-6.10); RED CELL DISTRIBUTION WIDTH 14.2 % (11.5-14.5)
[2017-09-12 06:48] LABS: BASOPHILS % 0.4 % (0.0-2.0); EOSINOPHILS # 0.6 10^3/ul (0.0-0.5); LYMPHOCYTES # 1.3 10^3/ul (0.8-2.9); MONOCYTE # 0.6 10^3/ul (0.3-0.9); NEUTROPHIL # 4.3 10^3/ul (1.6-7.5)
[2017-09-12 07:57] LABS: ANION GAP 12 (8-16); BLOOD UREA NITROGEN 39 mg/dl (7-20); CALCIUM 7.8 mg/dl (8.4-10.2); CARBON DIOXIDE 29 mmol/L (21-31); CHLORIDE 101 mmol/L (97-110); CREATININE 3.93 mg/dl (0.61-1.24); GLUCOSE 135 mg/dl (70-220); POTASSIUM 3.8 mmol/L (3.5-5.1); SODIUM 138 mmol/L (135-144)
[2017-09-12] MEDS: INSULIN ASPART [NOVOLOG] 3 ML PEN SC ×4 (08:30→21:00)
[2017-09-12] MEDS: HEPARIN 5,000 UNIT/0.5 ML VIAL SC ×2 (08:31→22:04)
[2017-09-12] MEDS: CALCIUM ACETATE 667 MG CAP PO ×3 (08:31→17:32)
[2017-09-12] MEDS: GUAIFENESIN/DM (SR) TAB PO ×2 (09:15→21:00)
[2017-09-12] MEDS: LACTOBACILLUS RHAMNOSUS CAP PO ×2 (09:15→22:02)
[2017-09-12] MEDS: LORATADINE 10 MG TAB NGT (09:15)
[2017-09-12] MEDS: CALCITRIOL 0.25 MCG CAP PO (09:15)
[2017-09-12] MEDS: CALCIUM CARBONATE 750 MG CHEW TAB PO ×3 (09:15→18:36)
[2017-09-12] MEDS: LINAGLIPTIN 5 MG TABLET PO (09:15)
[2017-09-12] MEDS: METOPROLOL 50 MG TAB PO ×2 (09:16→22:02)
[2017-09-12] MEDS: AMLODIPINE 5 MG TAB PO (09:16)
[2017-09-12] MEDS: NYSTATIN 30 GM POWDER BTL TOP ×2 (09:23→21:00)
[2017-09-12] MEDS ORDERED: EPOETIN 10000 UNITS/1 ML INJ (ESRD) SC (17:00)
[2017-09-12] MEDS: EPOETIN 2000 UNITS/1 ML INJ (ESRD) SC (17:34)
[2017-09-12] MEDS: EPOETIN 3000 UNITS/1 ML INJ (ESRD) SC (17:35)
[2017-09-12 18:50] LABS: ADD UMIC YES; UR ASCORBIC ACID NEGATIVE (NEGATIVE); UR BILIRUBIN (Dip) NEGATIVE (NEGATIVE); UR BLOOD (Dip) 3+ mg/dL (NEGATIVE); UR CLARITY CLEAR (CLEAR); UR COLOR RED (YELLOW); UR GLUCOSE (Dip) 2+ mg/dL (NEGATIVE); UR KETONES (Dip) NEGATIVE (NEGATIVE); UR LEUKOCYTE ESTERASE (Dip) NEGATIVE Leu/ul (NEGATIVE); UR NITRITE (Dip) NEGATIVE (NEGATIVE); UR RBC > 182 /HPF (0-5); UR TOTAL PROTEIN (Dip) 2+ mg/dl (NEGATIVE); UR UROBILINOGEN (Dip) NEGATIVE (NEGATIVE); UR WBC 9 /HPF (0-5)
[2017-09-12] MEDS: AMLODIPINE 2.5 MG TAB PO (22:02)
[2017-09-12] MEDS: FAMOTIDINE 20 MG TAB PO (22:02)
[2017-09-13] MEDS: ACCU-CHEK XX (02:00)
[2017-09-13 05:15] LABS: ADD MAN DIFF? NO
[2017-09-13 05:22] LABS: BASOPHILS % 0.4 % (0.0-2.0); EOSINOPHILS # 0.5 10^3/ul (0.0-0.5); EOSINOPHILS % 7.5 % (0.0-7.0); HEMATOCRIT 25.2 % (42.0-52.0); HEMOGLOBIN 8.3 g/dl (14.0-18.0); LYMPHOCYTES # 1.2 10^3/ul (0.8-2.9); MEAN CORPUSCULAR HEMOGLOBIN 28.1 pg (29.0-33.0); MEAN CORPUSCULAR HGB CONC 32.9 g/dl (32.0-37.0); MEAN CORPUSCULAR VOLUME 85.4 fl (82.0-101.0); MEAN PLATELET VOLUME 10.6 fl (7.4-10.4); MONOCYTE # 0.5 10^3/ul (0.3-0.9); MONOCYTES % 7.9 % (0.0-11.0); NEUTROPHIL # 4.4 10^3/ul (1.6-7.5); NEUTROPHILS % 65.6 % (39.0-77.0); PLATELET COUNT 126 10^3/UL (140-415); RED BLOOD COUNT 2.95 10^6/ul (4.70-6.10); RED CELL DISTRIBUTION WIDTH 14.3 % (11.5-14.5)
[2017-09-13 05:22] LABS: WHITE BLOOD COUNT 6.7 10^3/ul (4.8-10.8)
[2017-09-13 05:59] LABS: ALANINE AMINOTRANSFERASE 25 IU/L (13-69); ALBUMIN 2.1 g/dl (3.3-4.9); ALBUMIN/GLOBULIN RATIO 0.58; ALKALINE PHOSPHATASE 96 IU/L (42-121); ANION GAP 12 (8-16); ASPARTATE AMINO TRANSFERASE 36 IU/L (15-46); BLOOD UREA NITROGEN 41 mg/dl (7-20); CALCIUM 7.9 mg/dl (8.4-10.2); CARBON DIOXIDE 30 mmol/L (21-31); CHLORIDE 100 mmol/L (97-110); CREATININE 4.07 mg/dl (0.61-1.24); GLUCOSE 167 mg/dl (70-220); POTASSIUM 3.7 mmol/L (3.5-5.1); SODIUM 138 mmol/L (135-144); TOTAL PROTEIN 5.7 g/dl (6.1-8.1)
[2017-09-13] MEDS: CALCIUM ACETATE 667 MG CAP PO ×3 (08:03→17:24)
[2017-09-13] MEDS: INSULIN ASPART [NOVOLOG] 3 ML PEN SC ×4 (08:07→21:08)
[2017-09-13] MEDS: HEPARIN 5,000 UNIT/0.5 ML VIAL SC (09:00)
[2017-09-13] MEDS: LACTOBACILLUS RHAMNOSUS CAP PO ×2 (09:30→21:06)
[2017-09-13] MEDS: CALCITRIOL 0.25 MCG CAP PO (09:30)
[2017-09-13] MEDS: CALCIUM CARBONATE 750 MG CHEW TAB PO ×3 (09:30→18:45)
[2017-09-13] MEDS: GUAIFENESIN/DM (SR) TAB PO ×3 (09:30→21:06)
[2017-09-13] MEDS: AMLODIPINE 5 MG TAB PO (09:30)
[2017-09-13] MEDS: LINAGLIPTIN 5 MG TABLET PO (09:30)
[2017-09-13] MEDS: LORATADINE 10 MG TAB NGT (09:31)
[2017-09-13] MEDS: METOPROLOL 50 MG TAB PO ×2 (09:31→21:07)
[2017-09-13] MEDS: NYSTATIN 30 GM POWDER BTL TOP ×2 (09:36→21:09)
[2017-09-13] MEDS: FAMOTIDINE 20 MG TAB PO (21:06)
[2017-09-13] MEDS: AMLODIPINE 2.5 MG TAB PO (21:06)
[2017-09-14] MEDS: ACCU-CHEK XX (01:50)
[2017-09-14 05:57] LABS: ADD MAN DIFF? NO
[2017-09-14 06:04] LABS: BASOPHILS % 0.3 % (0.0-2.0); EOSINOPHILS # 0.5 10^3/ul (0.0-0.5); EOSINOPHILS % 7.6 % (0.0-7.0); HEMATOCRIT 26.6 % (42.0-52.0); HEMOGLOBIN 8.7 g/dl (14.0-18.0); LYMPHOCYTES # 1.4 10^3/ul (0.8-2.9); LYMPHOCYTES % 23.9 % (15.0-51.0); MEAN CORPUSCULAR HGB CONC 32.7 g/dl (32.0-37.0); MEAN CORPUSCULAR VOLUME 85.5 fl (82.0-101.0); MEAN PLATELET VOLUME 11.1 fl (7.4-10.4); MONOCYTE # 0.6 10^3/ul (0.3-0.9); MONOCYTES % 9.6 % (0.0-11.0); NEUTROPHIL # 3.4 10^3/ul (1.6-7.5); NEUTROPHILS % 57.8 % (39.0-77.0); PLATELET COUNT 142 10^3/UL (140-415); RED BLOOD COUNT 3.11 10^6/ul (4.70-6.10); RED CELL DISTRIBUTION WIDTH 14.4 % (11.5-14.5)
[2017-09-14 06:04] LABS: WHITE BLOOD COUNT 5.9 10^3/ul (4.8-10.8)
[2017-09-14 06:29] LABS: ANION GAP 12 (8-16); BLOOD UREA NITROGEN 44 mg/dl (7-20); CALCIUM 8.2 mg/dl (8.4-10.2); CARBON DIOXIDE 31 mmol/L (21-31); CHLORIDE 101 mmol/L (97-110); CREATININE 4.13 mg/dl (0.61-1.24); GLUCOSE 144 mg/dl (70-220); POTASSIUM 3.8 mmol/L (3.5-5.1); SODIUM 140 mmol/L (135-144)
[2017-09-14] MEDS: INSULIN ASPART [NOVOLOG] 3 ML PEN SC ×4 (08:00→23:57)
[2017-09-14] MEDS: CALCIUM ACETATE 667 MG CAP PO ×3 (08:16→17:44)
[2017-09-14] MEDS: LINAGLIPTIN 5 MG TABLET PO (09:25)
[2017-09-14] MEDS: CALCIUM CARBONATE 750 MG CHEW TAB PO ×4 (09:25→22:14)
[2017-09-14] MEDS: CALCITRIOL 0.25 MCG CAP PO (09:25)
[2017-09-14] MEDS: AMLODIPINE 5 MG TAB PO (09:25)
[2017-09-14] MEDS: GUAIFENESIN/DM (SR) TAB PO ×2 (09:25→22:13)
[2017-09-14] MEDS: LACTOBACILLUS RHAMNOSUS CAP PO ×2 (09:25→22:14)
[2017-09-14] MEDS: LORATADINE 10 MG TAB NGT (09:26)
[2017-09-14] MEDS: METOPROLOL 50 MG TAB PO ×2 (09:26→22:15)
[2017-09-14] MEDS: NYSTATIN 30 GM POWDER BTL TOP ×2 (09:29→22:21)
[2017-09-14] MEDS: EPOETIN 3000 UNITS/1 ML INJ (ESRD) SC (17:43)
[2017-09-14] MEDS: EPOETIN 2000 UNITS/1 ML INJ (ESRD) SC (17:43)
[2017-09-14] MEDS: FAMOTIDINE 20 MG TAB PO (22:13)
[2017-09-14] MEDS: AMLODIPINE 2.5 MG TAB PO (22:14)
[2017-09-15] MEDS: ACCU-CHEK XX (02:00)
[2017-09-15] MEDS: CALCIUM ACETATE 667 MG CAP PO ×4 (07:35→17:58)
[2017-09-15 07:58] LABS: ADD MAN DIFF? NO
[2017-09-15] MEDS: INSULIN ASPART [NOVOLOG] 3 ML PEN SC ×4 (08:00→20:29)
[2017-09-15 08:05] LABS: BASOPHILS % 0.4 % (0.0-2.0); EOSINOPHILS # 0.4 10^3/ul (0.0-0.5); HEMATOCRIT 26.8 % (42.0-52.0); HEMOGLOBIN 8.8 g/dl (14.0-18.0); LYMPHOCYTES # 1.3 10^3/ul (0.8-2.9); LYMPHOCYTES % 23.8 % (15.0-51.0); MEAN CORPUSCULAR HEMOGLOBIN 28.1 pg (29.0-33.0); MEAN CORPUSCULAR HGB CONC 32.8 g/dl (32.0-37.0); MEAN CORPUSCULAR VOLUME 85.6 fl (82.0-101.0); MEAN PLATELET VOLUME 10.2 fl (7.4-10.4); MONOCYTE # 0.6 10^3/ul (0.3-0.9); MONOCYTES % 10.8 % (0.0-11.0); NEUTROPHILS % 56.4 % (39.0-77.0); PLATELET COUNT 136 10^3/UL (140-415); RED BLOOD COUNT 3.13 10^6/ul (4.70-6.10); RED CELL DISTRIBUTION WIDTH 14.6 % (11.5-14.5)
[2017-09-15 08:05] LABS: WHITE BLOOD COUNT 5.4 10^3/ul (4.8-10.8)
[2017-09-15 08:42] LABS: ANION GAP 13 (8-16); BLOOD UREA NITROGEN 46 mg/dl (7-20); CALCIUM 8.3 mg/dl (8.4-10.2); CARBON DIOXIDE 30 mmol/L (21-31); CHLORIDE 100 mmol/L (97-110); CREATININE 4.06 mg/dl (0.61-1.24); GLUCOSE 156 mg/dl (70-220); POTASSIUM 3.5 mmol/L (3.5-5.1); SODIUM 139 mmol/L (135-144)
[2017-09-15] MEDS: CALCITRIOL 0.25 MCG CAP PO (09:15)
[2017-09-15] MEDS: GUAIFENESIN/DM (SR) TAB PO ×2 (09:15→20:21)
[2017-09-15] MEDS: LACTOBACILLUS RHAMNOSUS CAP PO ×2 (09:16→20:21)
[2017-09-15] MEDS: METOPROLOL 50 MG TAB PO ×2 (09:16→20:22)
[2017-09-15] MEDS: AMLODIPINE 5 MG TAB PO (09:16)
[2017-09-15] MEDS: LINAGLIPTIN 5 MG TABLET PO (09:16)
[2017-09-15] MEDS: LORATADINE 10 MG TAB NGT (09:16)
[2017-09-15] MEDS: NYSTATIN 30 GM POWDER BTL TOP ×2 (09:20→20:34)
[2017-09-15] MEDS: CALCIUM CARBONATE 750 MG CHEW TAB PO ×2 (12:14→17:58)
[2017-09-15] MEDS: FAMOTIDINE 20 MG TAB PO (20:21)
[2017-09-15] MEDS: AMLODIPINE 2.5 MG TAB PO (20:22)
[2017-09-16] MEDS: ACCU-CHEK XX (02:06)
[2017-09-16 05:42] LABS: ADD MAN DIFF? NO
[2017-09-16 05:52] LABS: WHITE BLOOD COUNT 5.7 10^3/ul (4.8-10.8)
[2017-09-16 05:52] LABS: BASOPHILS % 0.4 % (0.0-2.0); EOSINOPHILS # 0.4 10^3/ul (0.0-0.5); EOSINOPHILS % 7.8 % (0.0-7.0); HEMATOCRIT 26.6 % (42.0-52.0); LYMPHOCYTES # 1.5 10^3/ul (0.8-2.9); LYMPHOCYTES % 26.7 % (15.0-51.0); MEAN CORPUSCULAR HEMOGLOBIN 28.8 pg (29.0-33.0); MEAN CORPUSCULAR HGB CONC 33.8 g/dl (32.0-37.0); MEAN PLATELET VOLUME 9.9 fl (7.4-10.4); MONOCYTE # 0.6 10^3/ul (0.3-0.9); NEUTROPHILS % 53.4 % (39.0-77.0); PLATELET COUNT 117 10^3/UL (140-415); RED BLOOD COUNT 3.13 10^6/ul (4.70-6.10); RED CELL DISTRIBUTION WIDTH 15.2 % (11.5-14.5)
[2017-09-16 06:15] LABS: ANION GAP 12 (8-16); BLOOD UREA NITROGEN 44 mg/dl (7-20); CALCIUM 8.5 mg/dl (8.4-10.2); CARBON DIOXIDE 29 mmol/L (21-31); CHLORIDE 100 mmol/L (97-110); CREATININE 3.73 mg/dl (0.61-1.24); GLUCOSE 124 mg/dl (70-220); POTASSIUM 3.3 mmol/L (3.5-5.1); SODIUM 138 mmol/L (135-144)
[2017-09-16] MEDS: INSULIN ASPART [NOVOLOG] 3 ML PEN SC ×4 (08:00→21:00)
[2017-09-16] MEDS: LORATADINE 10 MG TAB NGT (08:52)
[2017-09-16] MEDS: NYSTATIN 30 GM POWDER BTL TOP ×2 (08:52→21:40)
[2017-09-16] MEDS: LACTOBACILLUS RHAMNOSUS CAP PO ×2 (08:52→21:37)
[2017-09-16] MEDS: CALCIUM ACETATE 667 MG CAP PO ×3 (08:52→17:51)
[2017-09-16] MEDS: GUAIFENESIN/DM (SR) TAB PO ×2 (08:52→21:38)
[2017-09-16] MEDS: CALCIUM CARBONATE 750 MG CHEW TAB PO ×3 (08:52→17:57)
[2017-09-16] MEDS: CALCITRIOL 0.25 MCG CAP PO (08:52)
[2017-09-16] MEDS: AMLODIPINE 5 MG TAB PO (08:53)
[2017-09-16] MEDS: LINAGLIPTIN 5 MG TABLET PO (08:53)
[2017-09-16] MEDS: METOPROLOL 50 MG TAB PO ×2 (09:02→21:38)
[2017-09-16] MEDS: EPOETIN 2000 UNITS/1 ML INJ (ESRD) SC (17:49)
[2017-09-16] MEDS: EPOETIN 3000 UNITS/1 ML INJ (ESRD) SC (17:51)
[2017-09-16] MEDS: AMLODIPINE 2.5 MG TAB PO (21:37)
[2017-09-16] MEDS: FAMOTIDINE 20 MG TAB PO (21:37)
[2017-09-17] MEDS: ACCU-CHEK XX (02:00)
[2017-09-17 05:39] LABS: ADD MAN DIFF? NO
[2017-09-17 05:41] LABS: WHITE BLOOD COUNT 5.4 10^3/ul (4.8-10.8)
[2017-09-17 05:41] LABS: BASOPHILS % 0.4 % (0.0-2.0); EOSINOPHILS # 0.4 10^3/ul (0.0-0.5); EOSINOPHILS % 7.1 % (0.0-7.0); HEMATOCRIT 25.5 % (42.0-52.0); HEMOGLOBIN 8.7 g/dl (14.0-18.0); LYMPHOCYTES # 1.5 10^3/ul (0.8-2.9); LYMPHOCYTES % 27.9 % (15.0-51.0); MEAN CORPUSCULAR HEMOGLOBIN 28.9 pg (29.0-33.0); MEAN CORPUSCULAR HGB CONC 34.1 g/dl (32.0-37.0); MEAN CORPUSCULAR VOLUME 84.7 fl (82.0-101.0); MEAN PLATELET VOLUME 10.5 fl (7.4-10.4); MONOCYTE # 0.7 10^3/ul (0.3-0.9); MONOCYTES % 12.3 % (0.0-11.0); NEUTROPHIL # 2.8 10^3/ul (1.6-7.5); NEUTROPHILS % 51.6 % (39.0-77.0); PLATELET COUNT 122 10^3/UL (140-415); RED BLOOD COUNT 3.01 10^6/ul (4.70-6.10); RED CELL DISTRIBUTION WIDTH 15.5 % (11.5-14.5)
[2017-09-17 06:33] LABS: ANION GAP 12 (8-16); BLOOD UREA NITROGEN 44 mg/dl (7-20); CALCIUM 8.5 mg/dl (8.4-10.2); CARBON DIOXIDE 29 mmol/L (21-31); CHLORIDE 100 mmol/L (97-110); CREATININE 3.81 mg/dl (0.61-1.24); GLUCOSE 142 mg/dl (70-220); POTASSIUM 3.2 mmol/L (3.5-5.1); SODIUM 138 mmol/L (135-144)
[2017-09-17] MEDS: INSULIN ASPART [NOVOLOG] 3 ML PEN SC ×4 (08:22→21:00)
[2017-09-17] MEDS: CALCITRIOL 0.25 MCG CAP PO (08:23)
[2017-09-17] MEDS: GUAIFENESIN/DM (SR) TAB PO ×2 (08:23→21:00)
[2017-09-17] MEDS: LINAGLIPTIN 5 MG TABLET PO (08:23)
[2017-09-17] MEDS: CALCIUM CARBONATE 750 MG CHEW TAB PO ×3 (08:23→17:21)
[2017-09-17] MEDS: CALCIUM ACETATE 667 MG CAP PO ×3 (08:23→17:21)
[2017-09-17] MEDS: LORATADINE 10 MG TAB NGT (08:23)
[2017-09-17] MEDS: LACTOBACILLUS RHAMNOSUS CAP PO ×2 (08:23→21:00)
[2017-09-17] MEDS: AMLODIPINE 5 MG TAB PO ×2 (08:24→21:00)
[2017-09-17] MEDS: METOPROLOL 50 MG TAB PO ×2 (08:24→21:00)
[2017-09-17] MEDS: NYSTATIN 30 GM POWDER BTL TOP ×2 (08:28→21:00)
[2017-09-17] MEDS: FAMOTIDINE 20 MG TAB PO (21:00)
[2017-09-18] MEDS: ACCU-CHEK XX (01:47)
[2017-09-18 05:04] LABS: ADD MAN DIFF? NO
[2017-09-18 05:19] LABS: BASOPHILS % 0.2 % (0.0-2.0); EOSINOPHILS # 0.3 10^3/ul (0.0-0.5); EOSINOPHILS % 6.2 % (0.0-7.0); HEMATOCRIT 26.5 % (42.0-52.0); HEMOGLOBIN 8.8 g/dl (14.0-18.0); LYMPHOCYTES # 1.5 10^3/ul (0.8-2.9); LYMPHOCYTES % 30.1 % (15.0-51.0); MEAN CORPUSCULAR HEMOGLOBIN 28.3 pg (29.0-33.0); MEAN CORPUSCULAR HGB CONC 33.2 g/dl (32.0-37.0); MEAN CORPUSCULAR VOLUME 85.2 fl (82.0-101.0); MEAN PLATELET VOLUME 10.8 fl (7.4-10.4); MONOCYTE # 0.7 10^3/ul (0.3-0.9); MONOCYTES % 14.8 % (0.0-11.0); NEUTROPHIL # 2.4 10^3/ul (1.6-7.5); NEUTROPHILS % 47.9 % (39.0-77.0); PLATELET COUNT 105 10^3/UL (140-415); RED BLOOD COUNT 3.11 10^6/ul (4.70-6.10); RED CELL DISTRIBUTION WIDTH 15.5 % (11.5-14.5)
[2017-09-18 06:10] LABS: ANION GAP 12 (8-16); BLOOD UREA NITROGEN 41 mg/dl (7-20); CALCIUM 8.3 mg/dl (8.4-10.2); CARBON DIOXIDE 30 mmol/L (21-31); CHLORIDE 100 mmol/L (97-110); CREATININE 3.83 mg/dl (0.61-1.24); GLUCOSE 148 mg/dl (70-220); POTASSIUM 3.2 mmol/L (3.5-5.1); SODIUM 139 mmol/L (135-144)
[2017-09-18] MEDS: INSULIN ASPART [NOVOLOG] 3 ML PEN SC ×4 (07:58→20:47)
[2017-09-18] MEDS: GUAIFENESIN/DM (SR) TAB PO ×3 (09:00→20:48)
[2017-09-18] MEDS: CALCIUM ACETATE 667 MG CAP PO ×3 (09:12→17:38)
[2017-09-18] MEDS: CALCIUM CARBONATE 750 MG CHEW TAB PO ×3 (09:14→17:38)
[2017-09-18] MEDS: CALCITRIOL 0.25 MCG CAP PO (09:14)
[2017-09-18] MEDS: LACTOBACILLUS RHAMNOSUS CAP PO ×2 (09:15→20:48)
[2017-09-18] MEDS: METOPROLOL 50 MG TAB PO ×2 (09:15→20:47)
[2017-09-18] MEDS: AMLODIPINE 5 MG TAB PO ×2 (09:15→20:48)
[2017-09-18] MEDS: NYSTATIN 30 GM POWDER BTL TOP ×2 (09:15→20:48)
[2017-09-18] MEDS: LINAGLIPTIN 5 MG TABLET PO (09:15)
[2017-09-18] MEDS: LORATADINE 10 MG TAB NGT (09:15)
[2017-09-18] MEDS: POTASSIUM CHLORIDE (SR) 20 MEQ TAB PO (18:35)
[2017-09-18] MEDS: ACETAMINOPHEN 325 MG TAB PO (20:46)
[2017-09-18] MEDS: FAMOTIDINE 20 MG TAB PO (20:47)
[2017-09-19] MEDS: ACCU-CHEK XX (01:55)
[2017-09-19] MEDS: INSULIN ASPART [NOVOLOG] 3 ML PEN SC ×4 (08:00→21:00)
[2017-09-19] MEDS: CALCIUM ACETATE 667 MG CAP PO ×3 (08:06→16:51)
[2017-09-19] MEDS: CALCITRIOL 0.25 MCG CAP PO (10:58)
[2017-09-19] MEDS: AMLODIPINE 5 MG TAB PO ×2 (10:58→21:00)
[2017-09-19] MEDS: METOPROLOL 50 MG TAB PO ×2 (10:59→21:00)
[2017-09-19] MEDS: LINAGLIPTIN 5 MG TABLET PO (10:59)
[2017-09-19] MEDS: CALCIUM CARBONATE 750 MG CHEW TAB PO ×3 (10:59→16:51)
[2017-09-19] MEDS: LACTOBACILLUS RHAMNOSUS CAP PO (10:59)
[2017-09-19] MEDS: LORATADINE 10 MG TAB NGT (10:59)
[2017-09-19] MEDS: GUAIFENESIN/DM (SR) TAB PO (10:59)
[2017-09-19] MEDS: NYSTATIN 30 GM POWDER BTL TOP ×2 (11:04→21:00)
[2017-09-19] MEDS: POLYETHYLENE GLYCOL 17 GM PACKET PO ×2 (16:49→16:51)
[2017-09-19] MEDS: EPOETIN 3000 UNITS/1 ML INJ (ESRD) SC (16:50)
[2017-09-19] MEDS: ACETAMINOPHEN 325 MG TAB PO (16:51)
[2017-09-19] MEDS: EPOETIN 2000 UNITS/1 ML INJ (ESRD) SC (16:51)
[2017-09-19] MEDS: FAMOTIDINE 20 MG TAB PO (21:00)
[2017-09-20] MEDS: ACCU-CHEK XX (02:00)
[2017-09-20 07:22] LABS: HEPATITIS B SURFACE ANTIBODY NEGATIVE (NEGATIVE)
[2017-09-20] MEDS: INSULIN ASPART [NOVOLOG] 3 ML PEN SC ×4 (07:59→20:50)
[2017-09-20] MEDS: CALCIUM ACETATE 667 MG CAP PO ×3 (09:06→17:18)
[2017-09-20] MEDS: LINAGLIPTIN 5 MG TABLET PO (09:07)
[2017-09-20] MEDS: CALCITRIOL 0.25 MCG CAP PO (09:07)
[2017-09-20] MEDS: METOPROLOL 50 MG TAB PO ×2 (09:07→20:46)
[2017-09-20] MEDS: AMLODIPINE 5 MG TAB PO ×2 (09:07→20:46)
[2017-09-20] MEDS: CALCIUM CARBONATE 750 MG CHEW TAB PO ×3 (09:07→19:05)
[2017-09-20] MEDS: LORATADINE 10 MG TAB NGT (09:07)
[2017-09-20] MEDS: NYSTATIN 30 GM POWDER BTL TOP ×2 (09:13→20:47)
[2017-09-20] MEDS: GUAIFENESIN 20 MG/ML 5ML CUP PO ×2 (13:06→20:52)
[2017-09-20] MEDS: BENAZEPRIL 5 MG TAB PO (15:30)
[2017-09-20] MEDS: FAMOTIDINE 20 MG TAB PO (20:47)
[2017-09-20] MEDS: ACETAMINOPHEN 325 MG TAB PO (21:57)
== END 2017-09-20 22:45 | DRG 853 ==
LOC: E/R 08:41 → PP2 11:35
PROVIDERS: Family Medicine
PROC: 0Y6G0ZZ Detachment at Left Knee Region, Open Approach (ICD-10-PCS; principal; 2017-08-29 13:30)
PROC: 0KXT0ZZ Transfer Left Lower Leg Muscle, Open Approach (ICD-10-PCS; 2017-08-29 13:30)
PROC: 0JH63XZ Insertion of Tunneled Vascular Access Device into Chest Subcutaneous Tissue and Fascia, Percutaneous Approach (ICD-10-PCS; 2017-08-29 13:49)
PROC: 05HN33Z Insertion of Infusion Device into Left Internal Jugular Vein, Percutaneous Approach (ICD-10-PCS; 2017-08-29 13:49)
PROC: 5A1D70Z Performance of Urinary Filtration, Intermittent, Less than 6 Hours Per Day (ICD-10-PCS; 2017-08-29 13:49)
PROC: 30233N1 Transfusion of Nonautologous Red Blood Cells into Peripheral Vein, Percutaneous Approach (ICD-10-PCS; 2017-08-29 13:49)
DX: A41.02 Sepsis due to Methicillin resistant Staphylococcus aureus (principal); N17.0 Acute kidney failure with tubular necrosis; J18.9 Pneumonia, unspecified organism; I70.262 Atherosclerosis of native arteries of extremities with gangrene, left leg; E11.52 Type 2 diabetes mellitus with diabetic peripheral angiopathy with gangrene; A52.16 Charcot's arthropathy (tabetic); M86.672 Other chronic osteomyelitis, left ankle and foot; E87.1 Hypo-osmolality and hyponatremia; N17.9 Acute kidney failure, unspecified; E11.621 Type 2 diabetes mellitus with foot ulcer; E87.5 Hyperkalemia; E11.69 Type 2 diabetes mellitus with other specified complication; N18.9 Chronic kidney disease, unspecified; I12.9 Hypertensive chronic kidney disease with stage 1 through stage 4 chronic kidney disease, or unspecified chronic kidney disease; N50.89 Other specified disorders of the male genital organs; R19.7 Diarrhea, unspecified; I70.201 Unspecified atherosclerosis of native arteries of extremities, right leg; B96.5 Pseudomonas (aeruginosa) (mallei) (pseudomallei) as the cause of diseases classified elsewhere; B95.2 Enterococcus as the cause of diseases classified elsewhere; B96.89 Other specified bacterial agents as the cause of diseases classified elsewhere; L27.0 Generalized skin eruption due to drugs and medicaments taken internally; T36.0X5A Adverse effect of penicillins, initial encounter; Y92.239 Unspecified place in hospital as the place of occurrence of the external cause; D64.9 Anemia, unspecified; E83.39 Other disorders of phosphorus metabolism; R60.1 Generalized edema
CPT/HCPCS: 36415; 36430; 36600; 71010; 73630-LT; 73700; 73718; 76775; 76870; 78806; 80048; 80053; 80061; 80069; 80202; 81001; 81003; 82550; 82553; 82570; 82728; 82803; 82962; 83036; 83540; 83605; 83690; 83735; 84100; 84155; 84300; 84443; 84484; 85025; 85045; 85610; 85651; 85730; 86021; 86038; 86140; 86160; 86704; 86706; 86709; 86803; 86850; 86900; 86901; 86920; 87040; 87070; 87075; 87086; 87340; 88307; 89190; 90935; 93005; 93306; 93922; 93970; 93971; 93976; 96365; 96366; 96368; 97003; 97110; 97161; 97166; 97530; 99285-25; J1940

== ENCOUNTER 2017-09-20 22:57 | Inpatient (IN) | payer OTHER ==
[2017-09-21] MEDS ORDERED: GLUCOSE GEL 15 GRAM TUBE PO ×2 (01:30)
[2017-09-21] MEDS ORDERED: GLUCOSE GEL 15 GRAM TUBE BUCCAL (01:30)
[2017-09-21] MEDS ORDERED: GLUCAGON 1 MG INJ IM (01:30)
[2017-09-21] MEDS ORDERED: DEXTROSE 50% 50 ML SYRINGE IV ×2 (01:30)
[2017-09-21] MEDS: ACCUCHECK AT 2AM (Patients on SS coverage) XX (02:00)
[2017-09-21 02:32] LABS: COLLECTION PERIOD 24 hrs
[2017-09-21 03:11] LABS: ADD UMIC YES; UR ASCORBIC ACID NEGATIVE (NEGATIVE); UR BACTERIA FEW /HPF (NONE SEEN); UR BILIRUBIN (Dip) NEGATIVE (NEGATIVE); UR BLOOD (Dip) 3+ mg/dL (NEGATIVE); UR CLARITY SLIGHTLY CLOUDY (CLEAR); UR COLOR RED (YELLOW); UR GLUCOSE (Dip) 2+ mg/dL (NEGATIVE); UR KETONES (Dip) NEGATIVE (NEGATIVE); UR LEUKOCYTE ESTERASE (Dip) NEGATIVE Leu/ul (NEGATIVE); UR NITRITE (Dip) NEGATIVE (NEGATIVE); UR RBC > 182 /HPF (0-5); UR SPECIFIC GRAVITY (Dip) 1.013 (1.003-1.030); UR TOTAL PROTEIN (Dip) 3+ mg/dl (NEGATIVE); UR UROBILINOGEN (Dip) NEGATIVE (NEGATIVE); UR WBC 5 /HPF (0-5)
[2017-09-21 07:12] LABS: VOLUME 1550 mls
[2017-09-21] MEDS: Insulin NOVOLOG SS MILD Algorithm (SS with meals and bedtime) SC ×4 (07:35→21:00)
[2017-09-21 08:02] LABS: ADD MAN DIFF? NO
[2017-09-21 08:11] LABS: WHITE BLOOD COUNT 3.2 10^3/ul (4.8-10.8)
[2017-09-21 08:11] LABS: ABNORMAL IP MESSAGE 1; BASOPHILS % 0.3 % (0.0-2.0); EOSINOPHILS # 0.2 10^3/ul (0.0-0.5); HEMATOCRIT 29.1 % (42.0-52.0); LYMPHOCYTES # 1.4 10^3/ul (0.8-2.9); LYMPHOCYTES % 42.3 % (15.0-51.0); MEAN CORPUSCULAR HEMOGLOBIN 28.7 pg (29.0-33.0); MEAN CORPUSCULAR HGB CONC 34.4 g/dl (32.0-37.0); MEAN CORPUSCULAR VOLUME 83.6 fl (82.0-101.0); MEAN PLATELET VOLUME 10.8 fl (7.4-10.4); MONOCYTE # 0.4 10^3/ul (0.3-0.9); MONOCYTES % 11.3 % (0.0-11.0); NEUTROPHIL # 1.3 10^3/ul (1.6-7.5); NEUTROPHILS % 40.8 % (39.0-77.0); POSITIVE DIFF @See below; RED BLOOD COUNT 3.48 10^6/ul (4.70-6.10)
[2017-09-21 08:13] LABS: PLATELET COUNT 88 10^3/UL (140-415)
[2017-09-21 08:26] LABS: ALANINE AMINOTRANSFERASE 33 IU/L (13-69); ALBUMIN 2.1 g/dl (3.3-4.9); ALBUMIN/GLOBULIN RATIO 0.55; ALKALINE PHOSPHATASE 94 IU/L (42-121); ANION GAP 8 (8-16); ASPARTATE AMINO TRANSFERASE 84 IU/L (15-46); BILIRUBIN,INDIRECT 0.1 mg/dl (0-1.1); BILIRUBIN,TOTAL 0.1 mg/dl (0.2-1.3); BLOOD UREA NITROGEN 40 mg/dl (7-20); CALCIUM 7.9 mg/dl (8.4-10.2); CARBON DIOXIDE 31 mmol/L (21-31); CHLORIDE 99 mmol/L (97-110); CREATININE 3.86 mg/dl (0.61-1.24); GLUCOSE 103 mg/dl (70-220); SODIUM 135 mmol/L (135-144); TOTAL PROTEIN 5.9 g/dl (6.1-8.1)
[2017-09-21] MEDS: CALCIUM CARBONATE 750 MG CHEW TAB PO ×3 (08:52→18:08)
[2017-09-21] MEDS: LINAGLIPTIN 5 MG TABLET PO (08:52)
[2017-09-21] MEDS: LORATADINE 10 MG TAB PO (08:52)
[2017-09-21] MEDS: CALCIUM ACETATE 667 MG CAP PO ×3 (08:52→18:08)
[2017-09-21] MEDS: FAMOTIDINE 20 MG TAB PO (08:53)
[2017-09-21] MEDS: POLYETHYLENE GLYCOL 17 GM PACKET PO (08:55)
[2017-09-21] MEDS: NYSTATIN 30 GM POWDER BTL TOP ×2 (08:55→20:23)
[2017-09-21] MEDS: CALCITRIOL 0.25 MCG CAP PO (08:55)
[2017-09-21] MEDS: AMLODIPINE 5 MG TAB PO ×2 (08:57→21:00)
[2017-09-21] MEDS: METOPROLOL 50 MG TAB PO ×3 (08:58→20:23)
[2017-09-21] MEDS: BENAZEPRIL 5 MG TAB PO (08:58)
[2017-09-21] MEDS: GUAIFENESIN 20 MG/ML 5ML CUP PO ×2 (12:49→19:22)
[2017-09-21 13:54] LABS: ADD UMIC YES; UR ASCORBIC ACID NEGATIVE (NEGATIVE); UR BILIRUBIN (Dip) NEGATIVE (NEGATIVE); UR BLOOD (Dip) 3+ mg/dL (NEGATIVE); UR CLARITY SLIGHTLY CLOUDY (CLEAR); UR COLOR YELLOW (YELLOW); UR GLUCOSE (Dip) 2+ mg/dL (NEGATIVE); UR KETONES (Dip) NEGATIVE (NEGATIVE); UR LEUKOCYTE ESTERASE (Dip) NEGATIVE Leu/ul (NEGATIVE); UR NITRITE (Dip) NEGATIVE (NEGATIVE); UR RBC > 182 /HPF (0-5); UR SPECIFIC GRAVITY (Dip) 1.013 (1.003-1.030); UR TOTAL PROTEIN (Dip) 3+ mg/dl (NEGATIVE); UR UROBILINOGEN (Dip) NEGATIVE (NEGATIVE); UR WBC 16 /HPF (0-5)
[2017-09-21] MEDS: CLOPIDOGREL 75 MG TAB PO (15:04)
[2017-09-21] MEDS: ASPIRIN 81 MG TAB PO (15:04)
[2017-09-22] MEDS: ACETAMINOPHEN 325 MG TAB PO (00:33)
[2017-09-22] MEDS: ACCUCHECK AT 2AM (Patients on SS coverage) XX (02:00)
[2017-09-22] MEDS: GUAIFENESIN 20 MG/ML 5ML CUP PO (06:55)
[2017-09-22] MEDS: Insulin NOVOLOG SS MILD Algorithm (SS with meals and bedtime) SC ×4 (08:47→20:35)
[2017-09-22] MEDS: POLYETHYLENE GLYCOL 17 GM PACKET PO (09:00)
[2017-09-22] MEDS: FAMOTIDINE 20 MG TAB PO (09:00)
[2017-09-22] MEDS: LORATADINE 10 MG TAB PO (09:00)
[2017-09-22] MEDS: CLOPIDOGREL 75 MG TAB PO (09:00)
[2017-09-22] MEDS: AMLODIPINE 5 MG TAB PO ×2 (09:01→21:00)
[2017-09-22] MEDS: CALCIUM CARBONATE 750 MG CHEW TAB PO ×3 (09:01→18:18)
[2017-09-22] MEDS: CALCITRIOL 0.25 MCG CAP PO (09:01)
[2017-09-22] MEDS: ASPIRIN 81 MG TAB PO (09:16)
[2017-09-22] MEDS: LINAGLIPTIN 5 MG TABLET PO (09:16)
[2017-09-22] MEDS: CALCIUM ACETATE 667 MG CAP PO ×3 (09:16→18:18)
[2017-09-22] MEDS: BENAZEPRIL 5 MG TAB PO ×2 (09:17→09:18)
[2017-09-22] MEDS: METOPROLOL 50 MG TAB PO ×2 (09:18→20:57)
[2017-09-22] MEDS: NYSTATIN 30 GM POWDER BTL TOP ×2 (09:28→21:01)
[2017-09-22] MEDS: POTASSIUM CHLORIDE (SR) 20 MEQ TAB PO (13:26)
[2017-09-22] MEDS: HYDROCODONE/APAP (5/325) TAB PO (13:28)
[2017-09-22] MEDS: CIPROFLOXACIN 500 MG TAB PO (13:28)
[2017-09-23] MEDS: HYDROCODONE/APAP (5/325) TAB PO (00:38)
[2017-09-23] MEDS: ACCUCHECK AT 2AM (Patients on SS coverage) XX (02:28)
[2017-09-23] MEDS: GUAIFENESIN 20 MG/ML 5ML CUP PO (06:17)
[2017-09-23] MEDS: Insulin NOVOLOG SS MILD Algorithm (SS with meals and bedtime) SC ×4 (07:35→22:20)
[2017-09-23 08:06] LABS: ANION GAP 11 (8-16); BLOOD UREA NITROGEN 45 mg/dl (7-20); CALCIUM 7.3 mg/dl (8.4-10.2); CARBON DIOXIDE 27 mmol/L (21-31); CHLORIDE 100 mmol/L (97-110); CREATININE 3.36 mg/dl (0.61-1.24); GLUCOSE 116 mg/dl (70-220); POTASSIUM 3.2 mmol/L (3.5-5.1); SODIUM 135 mmol/L (135-144)
[2017-09-23] MEDS: CALCIUM CARBONATE 750 MG CHEW TAB PO ×3 (08:29→18:35)
[2017-09-23] MEDS: CIPROFLOXACIN 500 MG TAB PO (08:29)
[2017-09-23] MEDS: BENAZEPRIL 5 MG TAB PO (08:30)
[2017-09-23] MEDS: CALCIUM ACETATE 667 MG CAP PO ×3 (08:30→17:45)
[2017-09-23] MEDS: POLYETHYLENE GLYCOL 17 GM PACKET PO (09:00)
[2017-09-23] MEDS: METOPROLOL 50 MG TAB PO ×3 (09:00→22:31)
[2017-09-23] MEDS: AMLODIPINE 5 MG TAB PO (09:00)
[2017-09-23] MEDS: ASPIRIN 81 MG TAB PO (09:39)
[2017-09-23] MEDS: LORATADINE 10 MG TAB PO (09:39)
[2017-09-23] MEDS: CALCITRIOL 0.25 MCG CAP PO (09:39)
[2017-09-23] MEDS: FAMOTIDINE 20 MG TAB PO (09:39)
[2017-09-23] MEDS: CLOPIDOGREL 75 MG TAB PO (09:39)
[2017-09-23] MEDS: NYSTATIN 30 GM POWDER BTL TOP ×2 (09:41→22:29)
[2017-09-23] MEDS: LINAGLIPTIN 5 MG TABLET PO (09:41)
[2017-09-23] MEDS: POTASSIUM CHLORIDE (SR) 20 MEQ TAB PO (12:38)
[2017-09-24] MEDS: ACCUCHECK AT 2AM (Patients on SS coverage) XX (02:00)
[2017-09-24] MEDS: Insulin NOVOLOG SS MILD Algorithm (SS with meals and bedtime) SC ×4 (07:35→21:00)
[2017-09-24] MEDS: CALCIUM ACETATE 667 MG CAP PO ×3 (08:28→18:06)
[2017-09-24] MEDS: CALCIUM CARBONATE 750 MG CHEW TAB PO ×3 (08:35→18:07)
[2017-09-24] MEDS: POLYETHYLENE GLYCOL 17 GM PACKET PO (09:00)
[2017-09-24] MEDS: CALCITRIOL 0.25 MCG CAP PO (11:49)
[2017-09-24] MEDS: CLOPIDOGREL 75 MG TAB PO (11:49)
[2017-09-24] MEDS: LINAGLIPTIN 5 MG TABLET PO (11:49)
[2017-09-24] MEDS: FAMOTIDINE 20 MG TAB PO (11:50)
[2017-09-24] MEDS: ASPIRIN 81 MG TAB PO (11:51)
[2017-09-24] MEDS: LORATADINE 10 MG TAB PO (11:51)
[2017-09-24] MEDS: NYSTATIN 30 GM POWDER BTL TOP ×2 (11:52→21:49)
[2017-09-24] MEDS: BENAZEPRIL 5 MG TAB PO (11:58)
[2017-09-24] MEDS: AMLODIPINE 2.5 MG TAB PO (12:00)
[2017-09-24] MEDS: METOPROLOL 50 MG TAB PO ×2 (12:00→21:48)
[2017-09-24] MEDS: ACETYLCYSTEINE 600 MG CAP PO ×2 (14:25→21:48)
[2017-09-24 15:54] LABS: ADD MAN DIFF? NO
[2017-09-24 15:57] LABS: WHITE BLOOD COUNT 5.1 10^3/ul (4.8-10.8)
[2017-09-24 15:57] LABS: ABNORMAL IP MESSAGE 1; BASOPHILS % 0.2 % (0.0-2.0); EOSINOPHILS # 0.3 10^3/ul (0.0-0.5); EOSINOPHILS % 5.3 % (0.0-7.0); HEMATOCRIT 28.7 % (42.0-52.0); HEMOGLOBIN 9.6 g/dl (14.0-18.0); LYMPHOCYTES # 2.1 10^3/ul (0.8-2.9); LYMPHOCYTES % 40.9 % (15.0-51.0); MEAN CORPUSCULAR HEMOGLOBIN 28.2 pg (29.0-33.0); MEAN CORPUSCULAR HGB CONC 33.4 g/dl (32.0-37.0); MEAN CORPUSCULAR VOLUME 84.4 fl (82.0-101.0); MEAN PLATELET VOLUME 11.7 fl (7.4-10.4); MONOCYTE # 0.3 10^3/ul (0.3-0.9); MONOCYTES % 6.3 % (0.0-11.0); NEUTROPHIL # 2.4 10^3/ul (1.6-7.5); NEUTROPHILS % 47.1 % (39.0-77.0); PLATELET COUNT 86 10^3/UL (140-415); POSITIVE DIFF @See below; RED CELL DISTRIBUTION WIDTH 15.6 % (11.5-14.5)
[2017-09-24 16:15] LABS: ANION GAP 8 (8-16); BLOOD UREA NITROGEN 43 mg/dl (7-20); CALCIUM 7.5 mg/dl (8.4-10.2); CARBON DIOXIDE 24 mmol/L (21-31); CHLORIDE 105 mmol/L (97-110); CREATININE 3.51 mg/dl (0.61-1.24); GLUCOSE 161 mg/dl (70-220); POTASSIUM 3.2 mmol/L (3.5-5.1); SODIUM 134 mmol/L (135-144)
[2017-09-24 16:41] LABS: ADD UMIC YES; UR ASCORBIC ACID NEGATIVE (NEGATIVE); UR BILIRUBIN (Dip) NEGATIVE (NEGATIVE); UR BLOOD (Dip) 3+ mg/dL (NEGATIVE); UR CLARITY CLEAR (CLEAR); UR COLOR YELLOW (YELLOW); UR GLUCOSE (Dip) 2+ mg/dL (NEGATIVE); UR KETONES (Dip) NEGATIVE (NEGATIVE); UR LEUKOCYTE ESTERASE (Dip) NEGATIVE Leu/ul (NEGATIVE); UR NITRITE (Dip) NEGATIVE (NEGATIVE); UR RBC > 182 /HPF (0-5); UR SPECIFIC GRAVITY (Dip) 1.013 (1.003-1.030); UR TOTAL PROTEIN (Dip) 3+ mg/dl (NEGATIVE); UR UROBILINOGEN (Dip) NEGATIVE (NEGATIVE); UR WBC 7 /HPF (0-5)
[2017-09-24] MEDS: POTASSIUM CHLORIDE (SR) 10 MEQ TAB PO (18:05)
[2017-09-25] MEDS: ACCUCHECK AT 2AM (Patients on SS coverage) XX (02:00)
[2017-09-25] MEDS: CALCIUM ACETATE 667 MG CAP PO ×3 (07:35→17:35)
[2017-09-25] MEDS: Insulin NOVOLOG SS MILD Algorithm (SS with meals and bedtime) SC ×4 (07:35→20:46)
[2017-09-25 08:11] LABS: ADD MAN DIFF? NO
[2017-09-25 08:15] LABS: BASOPHILS % 0.2 % (0.0-2.0); EOSINOPHILS # 0.4 10^3/ul (0.0-0.5); EOSINOPHILS % 6.4 % (0.0-7.0); HEMATOCRIT 27.7 % (42.0-52.0); LYMPHOCYTES # 2.1 10^3/ul (0.8-2.9); LYMPHOCYTES % 35.8 % (15.0-51.0); MEAN CORPUSCULAR HEMOGLOBIN 27.4 pg (29.0-33.0); MEAN CORPUSCULAR HGB CONC 32.5 g/dl (32.0-37.0); MEAN CORPUSCULAR VOLUME 84.5 fl (82.0-101.0); MEAN PLATELET VOLUME 11.5 fl (7.4-10.4); MONOCYTE # 0.5 10^3/ul (0.3-0.9); MONOCYTES % 8.1 % (0.0-11.0); NEUTROPHIL # 2.9 10^3/ul (1.6-7.5); PLATELET COUNT 101 10^3/UL (140-415); RED BLOOD COUNT 3.28 10^6/ul (4.70-6.10); RED CELL DISTRIBUTION WIDTH 15.2 % (11.5-14.5)
[2017-09-25 08:15] LABS: WHITE BLOOD COUNT 5.8 10^3/ul (4.8-10.8)
[2017-09-25 08:35] LABS: ANION GAP 7 (8-16); BLOOD UREA NITROGEN 40 mg/dl (7-20); CALCIUM 7.3 mg/dl (8.4-10.2); CARBON DIOXIDE 26 mmol/L (21-31); CHLORIDE 106 mmol/L (97-110); CREATININE 3.37 mg/dl (0.61-1.24); GLUCOSE 125 mg/dl (70-220); POTASSIUM 3.4 mmol/L (3.5-5.1); SODIUM 136 mmol/L (135-144)
[2017-09-25] MEDS: LINAGLIPTIN 5 MG TABLET PO (08:48)
[2017-09-25] MEDS: CALCIUM CARBONATE 750 MG CHEW TAB PO ×3 (08:48→18:35)
[2017-09-25] MEDS: ACETYLCYSTEINE 600 MG CAP PO ×2 (08:48→20:34)
[2017-09-25] MEDS: HYDROCODONE/APAP (5/325) TAB PO ×2 (08:48→17:36)
[2017-09-25] MEDS: FAMOTIDINE 20 MG TAB PO (08:48)
[2017-09-25] MEDS: CALCITRIOL 0.25 MCG CAP PO (08:48)
[2017-09-25] MEDS: METOPROLOL 50 MG TAB PO ×2 (08:49→20:37)
[2017-09-25] MEDS: CLOPIDOGREL 75 MG TAB PO (08:49)
[2017-09-25] MEDS: ASPIRIN 81 MG TAB PO (08:49)
[2017-09-25] MEDS: LORATADINE 10 MG TAB PO (08:49)
[2017-09-25] MEDS: POLYETHYLENE GLYCOL 17 GM PACKET PO (08:50)
[2017-09-25] MEDS: AMLODIPINE 2.5 MG TAB PO (08:50)
[2017-09-25] MEDS: NYSTATIN 30 GM POWDER BTL TOP ×3 (12:02→21:00)
[2017-09-25] MEDS: POTASSIUM CHLORIDE (SR) 20 MEQ TAB PO (17:36)
[2017-09-26] MEDS: ACCUCHECK AT 2AM (Patients on SS coverage) XX (02:07)
[2017-09-26 06:32] LABS: ADD MAN DIFF? NO
[2017-09-26 06:35] LABS: WHITE BLOOD COUNT 6.4 10^3/ul (4.8-10.8)
[2017-09-26 06:35] LABS: BASOPHILS % 0.2 % (0.0-2.0); EOSINOPHILS # 0.5 10^3/ul (0.0-0.5); EOSINOPHILS % 7.4 % (0.0-7.0); HEMATOCRIT 28.6 % (42.0-52.0); HEMOGLOBIN 9.4 g/dl (14.0-18.0); MEAN CORPUSCULAR HEMOGLOBIN 28.2 pg (29.0-33.0); MEAN CORPUSCULAR HGB CONC 32.9 g/dl (32.0-37.0); MEAN CORPUSCULAR VOLUME 85.9 fl (82.0-101.0); MEAN PLATELET VOLUME 10.3 fl (7.4-10.4); MONOCYTE # 0.5 10^3/ul (0.3-0.9); MONOCYTES % 7.7 % (0.0-11.0); NEUTROPHIL # 3.4 10^3/ul (1.6-7.5); NEUTROPHILS % 53.4 % (39.0-77.0); PLATELET COUNT 116 10^3/UL (140-415); RED BLOOD COUNT 3.33 10^6/ul (4.70-6.10); RED CELL DISTRIBUTION WIDTH 15.1 % (11.5-14.5)
[2017-09-26 07:20] LABS: ANION GAP 11 (8-16); BLOOD UREA NITROGEN 39 mg/dl (7-20); CALCIUM 6.9 mg/dl (8.4-10.2); CARBON DIOXIDE 25 mmol/L (21-31); CHLORIDE 107 mmol/L (97-110); CREATININE 3.06 mg/dl (0.61-1.24); GLUCOSE 147 mg/dl (70-220); POTASSIUM 4.4 mmol/L (3.5-5.1); SODIUM 139 mmol/L (135-144)
[2017-09-26] MEDS: Insulin NOVOLOG SS MILD Algorithm (SS with meals and bedtime) SC ×4 (08:45→21:31)
[2017-09-26] MEDS: ASPIRIN 81 MG TAB PO (08:47)
[2017-09-26] MEDS: CALCIUM ACETATE 667 MG CAP PO ×3 (08:47→18:07)
[2017-09-26] MEDS: CALCIUM CARBONATE 750 MG CHEW TAB PO ×3 (08:47→18:07)
[2017-09-26] MEDS: METOPROLOL 50 MG TAB PO ×2 (08:48→21:35)
[2017-09-26] MEDS: POLYETHYLENE GLYCOL 17 GM PACKET PO ×2 (08:48→08:58)
[2017-09-26] MEDS: LORATADINE 10 MG TAB PO (08:48)
[2017-09-26] MEDS: FAMOTIDINE 20 MG TAB PO (08:49)
[2017-09-26] MEDS: AMLODIPINE 2.5 MG TAB PO (08:49)
[2017-09-26] MEDS: ACETYLCYSTEINE 600 MG CAP PO ×2 (08:49→21:32)
[2017-09-26] MEDS: CLOPIDOGREL 75 MG TAB PO (08:49)
[2017-09-26] MEDS: CALCITRIOL 0.25 MCG CAP PO (08:50)
[2017-09-26] MEDS: LINAGLIPTIN 5 MG TABLET PO (08:50)
[2017-09-26] MEDS: NYSTATIN 30 GM POWDER BTL TOP ×2 (08:51→21:37)
[2017-09-26 19:49] LABS: ADD UMIC YES; UR ASCORBIC ACID NEGATIVE (NEGATIVE); UR BACTERIA FEW /HPF (NONE SEEN); UR BILIRUBIN (Dip) NEGATIVE (NEGATIVE); UR BLOOD (Dip) 3+ mg/dL (NEGATIVE); UR CLARITY SLIGHTLY CLOUDY (CLEAR); UR COLOR YELLOW (YELLOW); UR GLUCOSE (Dip) 3+ mg/dL (NEGATIVE); UR KETONES (Dip) NEGATIVE (NEGATIVE); UR LEUKOCYTE ESTERASE (Dip) TRACE Leu/ul (NEGATIVE); UR NITRITE (Dip) NEGATIVE (NEGATIVE); UR RBC > 182 /HPF (0-5); UR SPECIFIC GRAVITY (Dip) 1.012 (1.003-1.030); UR TOTAL PROTEIN (Dip) 3+ mg/dl (NEGATIVE); UR UROBILINOGEN (Dip) NEGATIVE (NEGATIVE); UR WBC 32 /HPF (0-5)
[2017-09-27] MEDS: ACCUCHECK AT 2AM (Patients on SS coverage) XX (02:21)
[2017-09-27] MEDS: Insulin NOVOLOG SS MILD Algorithm (SS with meals and bedtime) SC ×4 (07:35→21:00)
[2017-09-27] MEDS: NYSTATIN 30 GM POWDER BTL TOP ×2 (08:19→21:00)
[2017-09-27] MEDS: CALCIUM ACETATE 667 MG CAP PO ×3 (08:19→17:45)
[2017-09-27] MEDS: HYDROCODONE/APAP (5/325) TAB PO (08:58)
[2017-09-27] MEDS: CALCIUM CARBONATE 750 MG CHEW TAB PO ×3 (08:58→17:46)
[2017-09-27] MEDS: CALCITRIOL 0.25 MCG CAP PO (08:59)
[2017-09-27] MEDS: FAMOTIDINE 20 MG TAB PO (09:00)
[2017-09-27] MEDS: POLYETHYLENE GLYCOL 17 GM PACKET PO (09:00)
[2017-09-27] MEDS: CLOPIDOGREL 75 MG TAB PO (09:01)
[2017-09-27] MEDS: METOPROLOL 50 MG TAB PO ×2 (09:01→21:15)
[2017-09-27] MEDS: LORATADINE 10 MG TAB PO (09:01)
[2017-09-27] MEDS: AMLODIPINE 2.5 MG TAB PO (09:01)
[2017-09-27] MEDS: ASPIRIN 81 MG TAB PO (09:02)
[2017-09-27] MEDS: LINAGLIPTIN 5 MG TABLET PO (09:03)
[2017-09-27] MEDS: ACETYLCYSTEINE 600 MG CAP PO ×2 (09:06→17:43)
[2017-09-27] MEDS: NIFEdipine (XL) 30 MG TAB PO ×2 (12:00→21:15)
[2017-09-28] MEDS: ACCUCHECK AT 2AM (Patients on SS coverage) XX (02:00)
[2017-09-28] MEDS: Insulin NOVOLOG SS MILD Algorithm (SS with meals and bedtime) SC ×4 (08:12→22:25)
[2017-09-28] MEDS: HYDROCODONE/APAP (5/325) TAB PO (08:15)
[2017-09-28] MEDS: FAMOTIDINE 20 MG TAB PO (08:53)
[2017-09-28] MEDS: METOPROLOL 50 MG TAB PO ×2 (08:54→22:19)
[2017-09-28] MEDS: CALCIUM ACETATE 667 MG CAP PO ×3 (08:54→18:01)
[2017-09-28] MEDS: ACETYLCYSTEINE 600 MG CAP PO ×2 (08:54→22:19)
[2017-09-28] MEDS: LINAGLIPTIN 5 MG TABLET PO (08:54)
[2017-09-28] MEDS: ASPIRIN 81 MG TAB PO (08:56)
[2017-09-28] MEDS: CLOPIDOGREL 75 MG TAB PO (08:57)
[2017-09-28] MEDS: NIFEdipine (XL) 30 MG TAB PO ×2 (08:57→22:19)
[2017-09-28] MEDS: AMLODIPINE 2.5 MG TAB PO (08:58)
[2017-09-28] MEDS: NYSTATIN 30 GM POWDER BTL TOP ×2 (08:59→22:26)
[2017-09-28] MEDS: LORATADINE 10 MG TAB PO (08:59)
[2017-09-28] MEDS: POLYETHYLENE GLYCOL 17 GM PACKET PO (09:00)
[2017-09-28] MEDS: CALCIUM CARBONATE 750 MG CHEW TAB PO ×3 (09:30→18:01)
[2017-09-28] MEDS: CALCITRIOL 0.25 MCG CAP PO (09:30)
[2017-09-28] MEDS: INSULIN GLARGINE [LANtus] 3 ML PEN SC (12:58)
[2017-09-28] MEDS ORDERED: LIDOCAINE 1% (MDV) 20 ML INJ (13:46)
[2017-09-29] MEDS: ACCUCHECK AT 2AM (Patients on SS coverage) XX (02:00)
[2017-09-29] MEDS: CALCIUM ACETATE 667 MG CAP PO ×2 (08:04→12:27)
[2017-09-29] MEDS: Insulin NOVOLOG SS MILD Algorithm (SS with meals and bedtime) SC ×2 (08:04→12:27)
[2017-09-29] MEDS: INSULIN GLARGINE [LANtus] 3 ML PEN SC (08:18)
[2017-09-29] MEDS: CALCIUM CARBONATE 750 MG CHEW TAB PO ×2 (08:35→13:00)
[2017-09-29] MEDS: METOPROLOL 50 MG TAB PO (09:00)
[2017-09-29] MEDS: LORATADINE 10 MG TAB PO (09:00)
[2017-09-29] MEDS: POLYETHYLENE GLYCOL 17 GM PACKET PO (09:00)
[2017-09-29] MEDS: AMLODIPINE 2.5 MG TAB PO (09:00)
[2017-09-29] MEDS: NIFEdipine (XL) 30 MG TAB PO (09:00)
[2017-09-29] MEDS: ASPIRIN 81 MG TAB PO (09:50)
[2017-09-29] MEDS: CLOPIDOGREL 75 MG TAB PO (09:50)
[2017-09-29] MEDS: FAMOTIDINE 20 MG TAB PO (09:50)
[2017-09-29] MEDS: CALCITRIOL 0.25 MCG CAP PO (09:50)
[2017-09-29] MEDS: HYDROCODONE/APAP (5/325) TAB PO (09:51)
[2017-09-29] MEDS: LINAGLIPTIN 5 MG TABLET PO (09:52)
[2017-09-29] MEDS: NYSTATIN 30 GM POWDER BTL TOP (09:53)
[2017-09-29] MEDS: ACETYLCYSTEINE 600 MG CAP PO (12:28)
== END 2017-09-29 16:30 | disposition home health service (06) | DRG 982 ==
LOC: VRC 22:57
PROC: 05PY03Z Removal of Infusion Device from Upper Vein, Open Approach (ICD-10-PCS; principal; 2017-09-28)
DX: Z47.81 Encounter for orthopedic aftercare following surgical amputation (principal); I12.0 Hypertensive chronic kidney disease with stage 5 chronic kidney disease or end stage renal disease; E11.21 Type 2 diabetes mellitus with diabetic nephropathy; N17.9 Acute kidney failure, unspecified; D62 Acute posthemorrhagic anemia; N18.5 Chronic kidney disease, stage 5; N39.0 Urinary tract infection, site not specified; E11.22 Type 2 diabetes mellitus with diabetic chronic kidney disease; Z89.512 Acquired absence of left leg below knee; E11.40 Type 2 diabetes mellitus with diabetic neuropathy, unspecified; E11.51 Type 2 diabetes mellitus with diabetic peripheral angiopathy without gangrene; E87.6 Hypokalemia; Z89.522 Acquired absence of left knee; F41.8 Other specified anxiety disorders; F32.9 Major depressive disorder, single episode, unspecified; I70.203 Unspecified atherosclerosis of native arteries of extremities, bilateral legs; E78.5 Hyperlipidemia, unspecified
CPT/HCPCS: 36589; 80048; 80053; 81001; 82962; 84156; 85025; 87081; 87086; 93971; 97110; 97116; 97163; 97167; 97530; 97535; 97542

== ENCOUNTER 2017-10-16 09:16 | Inpatient (IN) | payer OTHER ==
[2017-10-16 12:28] LABS: WHITE BLOOD COUNT 9.4 10^3/ul (4.8-10.8)
[2017-10-16 12:28] LABS: ADD MAN DIFF? NO; BASOPHILS % 0.3 % (0.0-2.0); EOSINOPHILS # 0.3 10^3/ul (0.0-0.5); EOSINOPHILS % 3.1 % (0.0-7.0); HEMATOCRIT 27.1 % (42.0-52.0); HEMOGLOBIN 8.8 g/dl (14.0-18.0); LYMPHOCYTES # 1.4 10^3/ul (0.8-2.9); LYMPHOCYTES % 14.8 % (15.0-51.0); MEAN CORPUSCULAR HGB CONC 32.5 g/dl (32.0-37.0); MEAN CORPUSCULAR VOLUME 83.1 fl (82.0-101.0); MEAN PLATELET VOLUME 9.7 fl (7.4-10.4); MONOCYTE # 0.8 10^3/ul (0.3-0.9); MONOCYTES % 8.3 % (0.0-11.0); NEUTROPHIL # 6.9 10^3/ul (1.6-7.5); NEUTROPHILS % 73.1 % (39.0-77.0); PLATELET COUNT 301 10^3/UL (140-415); RED BLOOD COUNT 3.26 10^6/ul (4.70-6.10); RED CELL DISTRIBUTION WIDTH 15.4 % (11.5-14.5)
[2017-10-16 12:41] LABS: ADD UMIC YES; UR ASCORBIC ACID NEGATIVE (NEGATIVE); UR BACTERIA FEW /HPF (NONE SEEN); UR BILIRUBIN (Dip) NEGATIVE (NEGATIVE); UR BLOOD (Dip) 3+ mg/dL (NEGATIVE); UR BUDDING YEAST MODERATE /HPF (NONE SEEN); UR CLARITY CLOUDY (CLEAR); UR COLOR YELLOW (YELLOW); UR GLUCOSE (Dip) 3+ mg/dL (NEGATIVE); UR KETONES (Dip) NEGATIVE (NEGATIVE); UR LEUKOCYTE ESTERASE (Dip) 3+ Leu/ul (NEGATIVE); UR NITRITE (Dip) NEGATIVE (NEGATIVE); UR RBC > 182 /HPF (0-5); UR TOTAL PROTEIN (Dip) 2+ mg/dl (NEGATIVE); UR UROBILINOGEN (Dip) NEGATIVE (NEGATIVE); UR WBC > 182 /HPF (0-5)
[2017-10-16 13:11] LABS: ALANINE AMINOTRANSFERASE 16 IU/L (13-69); ALBUMIN 2.8 g/dl (3.3-4.9); ALBUMIN/GLOBULIN RATIO 0.51; ALKALINE PHOSPHATASE 141 IU/L (42-121); AMYLASE 229 U/L (11-123); ANION GAP 14 (8-16); ASPARTATE AMINO TRANSFERASE 35 IU/L (15-46); BLOOD UREA NITROGEN 59 mg/dl (7-20); CALCIUM 7.9 mg/dl (8.4-10.2); CARBON DIOXIDE 23 mmol/L (21-31); CHLORIDE 98 mmol/L (97-110); CREATININE 4.16 mg/dl (0.61-1.24); GLUCOSE 310 mg/dl (70-220); LIPASE 1989 U/L (23-300); POTASSIUM 4.1 mmol/L (3.5-5.1); SODIUM 131 mmol/L (135-144); TOTAL PROTEIN 8.2 g/dl (6.1-8.1)
[2017-10-16] MEDS: CEFTRIAXONE 1 GM/50 ML (PMX) 50 ML IVPB (13:13)
[2017-10-16 13:27] LABS: TROPONIN-I < 0.012 ng/ml (0.00-0.12)
[2017-10-16] MEDS ORDERED: ONDANSETRON 4 MG INJ IV (14:00)
[2017-10-16] MEDS ORDERED: ACETAMINOPHEN 325 MG TAB PO (14:00)
[2017-10-16] MEDS: SOD CHLORIDE 0.9% 1,000 ML IV (14:03)
[2017-10-16] MEDS ORDERED: GLUCOSE GEL 15 GRAM TUBE PO ×2 (14:30)
[2017-10-16] MEDS ORDERED: DEXTROSE 50% 50 ML SYRINGE IV ×2 (14:30)
[2017-10-16] MEDS ORDERED: GLUCAGON 1 MG INJ IM (14:30)
[2017-10-16] MEDS ORDERED: GLUCOSE GEL 15 GRAM TUBE BUCCAL (14:30)
[2017-10-16] MEDS ORDERED: NACL 0.9% 3 ML SYG IV (15:00)
[2017-10-16] MEDS: INSULIN ASPART [NOVOLOG] 3 ML PEN SC ×3 (18:00→21:00)
[2017-10-16] MEDS ORDERED: NIFEdipine (XL) 30 MG TAB PO (21:00)
[2017-10-16] MEDS: METOPROLOL 50 MG TAB PO (21:36)
[2017-10-16] MEDS: INSULIN GLARGINE [LANtus] 3 ML PEN SC (21:39)
[2017-10-17] MEDS: CIPROFLOXACIN 250 MG TAB PO (05:56)
[2017-10-17] MEDS: FUROSEMIDE 40 MG INJ IV (05:57)
[2017-10-17 06:08] LABS: ADD MAN DIFF? NO
[2017-10-17 06:18] LABS: BASOPHILS % 0.2 % (0.0-2.0); EOSINOPHILS # 0.4 10^3/ul (0.0-0.5); EOSINOPHILS % 4.7 % (0.0-7.0); HEMATOCRIT 22.3 % (42.0-52.0); HEMOGLOBIN 7.5 g/dl (14.0-18.0); LYMPHOCYTES % 22.8 % (15.0-51.0); MEAN CORPUSCULAR HEMOGLOBIN 27.7 pg (29.0-33.0); MEAN CORPUSCULAR HGB CONC 33.6 g/dl (32.0-37.0); MEAN CORPUSCULAR VOLUME 82.3 fl (82.0-101.0); MEAN PLATELET VOLUME 9.5 fl (7.4-10.4); MONOCYTE # 0.8 10^3/ul (0.3-0.9); MONOCYTES % 9.7 % (0.0-11.0); NEUTROPHIL # 5.4 10^3/ul (1.6-7.5); NEUTROPHILS % 62.1 % (39.0-77.0); PLATELET COUNT 263 10^3/UL (140-415); RED BLOOD COUNT 2.71 10^6/ul (4.70-6.10); RED CELL DISTRIBUTION WIDTH 15.4 % (11.5-14.5)
[2017-10-17 06:18] LABS: WHITE BLOOD COUNT 8.7 10^3/ul (4.8-10.8)
[2017-10-17 06:54] LABS: ALANINE AMINOTRANSFERASE 19 IU/L (13-69); ALBUMIN 2.4 g/dl (3.3-4.9); ALBUMIN/GLOBULIN RATIO 0.54; ALKALINE PHOSPHATASE 81 IU/L (42-121); ANION GAP 14 (8-16); ASPARTATE AMINO TRANSFERASE 27 IU/L (15-46); BLOOD UREA NITROGEN 57 mg/dl (7-20); CALCIUM 7.5 mg/dl (8.4-10.2); CARBON DIOXIDE 22 mmol/L (21-31); CHLORIDE 102 mmol/L (97-110); CREATININE 4.16 mg/dl (0.61-1.24); GLUCOSE 64 mg/dl (70-220); POTASSIUM 3.8 mmol/L (3.5-5.1); SODIUM 134 mmol/L (135-144); TOTAL PROTEIN 6.8 g/dl (6.1-8.1)
[2017-10-17 07:24] LABS: HEMOGLOBIN A1C 6.1 % (0-5.9)
[2017-10-17] MEDS: INSULIN ASPART [NOVOLOG] 3 ML PEN SC ×7 (08:15→21:00)
[2017-10-17] MEDS: CLOPIDOGREL 75 MG TAB PO (08:32)
[2017-10-17] MEDS: METOPROLOL 50 MG TAB PO ×2 (08:32→21:29)
[2017-10-17] MEDS: ENOXAPARIN 30 MG/0.3 ML SYG SC (08:37)
[2017-10-17] MEDS ORDERED: FUROSEMIDE 40 MG INJ IV (09:00)
[2017-10-17] MEDS: CEFTRIAXONE 1 GM/50 ML (PMX) 50 ML IVPB (14:06)
[2017-10-17 21:17] LABS: IRON 22 ug/dl (35-150)
[2017-10-17 21:26] LABS: % IRON SATURATION 15 % SAT (22-52); TOTAL IRON BINDING CAPACITY 143 ug/dl (241-421)
[2017-10-17] MEDS: INSULIN GLARGINE [LANtus] 3 ML PEN SC (21:33)
[2017-10-18] MEDS: CIPROFLOXACIN 250 MG TAB PO (05:52)
[2017-10-18] MEDS: FUROSEMIDE 40 MG INJ IV (05:53)
[2017-10-18] MEDS: INSULIN ASPART [NOVOLOG] 3 ML PEN SC ×4 (08:00→12:06)
[2017-10-18] MEDS: CLOPIDOGREL 75 MG TAB PO (08:07)
[2017-10-18] MEDS: METOPROLOL 50 MG TAB PO (08:07)
[2017-10-18] MEDS: ENOXAPARIN 30 MG/0.3 ML SYG SC (08:11)
[2017-10-19] MEDS ORDERED: EPOETIN 10000 UNITS/1 ML INJ (ESRD) SC (17:00)
== END 2017-10-18 14:40 | disposition home or self-care (01) | DRG 690 ==
LOC: MS2 18:18 → E/R 09:16 → MS2 13:48
DX: N39.0 Urinary tract infection, site not specified (principal); E11.21 Type 2 diabetes mellitus with diabetic nephropathy; N17.9 Acute kidney failure, unspecified; E11.40 Type 2 diabetes mellitus with diabetic neuropathy, unspecified; I12.0 Hypertensive chronic kidney disease with stage 5 chronic kidney disease or end stage renal disease; E87.1 Hypo-osmolality and hyponatremia; N18.5 Chronic kidney disease, stage 5; E11.22 Type 2 diabetes mellitus with diabetic chronic kidney disease; E11.51 Type 2 diabetes mellitus with diabetic peripheral angiopathy without gangrene; E11.65 Type 2 diabetes mellitus with hyperglycemia; E86.0 Dehydration; Z79.4 Long term (current) use of insulin; Z89.512 Acquired absence of left leg below knee; Z87.891 Personal history of nicotine dependence; Z79.02 Long term (current) use of antithrombotics/antiplatelets
CPT/HCPCS: 80053; 81001; 82150; 82962; 83036; 83540; 83690; 84484; 85025; 87040; 87086; 87400; 93005; 93971; 96374; 99285-25

== ENCOUNTER 2017-10-29 10:24 | Emergency (ER) | payer SELFPAY, OTHER | END 2017-10-29 15:19 | disposition left against medical advice (07) | LOC: E/R 15:19 | DX: Z53.21 Procedure and treatment not carried out due to patient leaving prior to being seen by health care provider (principal) ==